=== PATIENT | female | born 1985 ===

== ENCOUNTER → 2020-12-15 11:25 | Outpatient (CLI) | payer OTHER, SELFPAY ==
[2020-12-15 13:31] LABS: COVID19 -Nasal RAPID Negative (Negative)
== END ==
PROVIDERS: Family Provider Family Medicine; PCP Nurse Practitioner Family; Visit Provider Family Medicine
DX: Z01.812 Encounter for preprocedural laboratory examination (principal); Z20.822 Contact with and (suspected) exposure to COVID-19
CPT/HCPCS: 87635

== ENCOUNTER 2020-12-17 08:51 | Day surgery (SDC) | payer OTHER, SELFPAY ==
[2020-12-14 11:52] VITALS: BMI 23.7
[2020-12-17] VITALS (8 sets, daily range): BP systolic 118–131; BP diastolic 75–85; PULSE 82–102; RESP 8–17; TEMP 35.8–36.9; O2SAT 91–99; BMI 23.7
--- NOTE | 2020-12-17 | DI.RAD.S_ITS ---
PROCEDURE: XR ANKLE RT MIN 3V INDICATIONS: RIGHT ANKLE ORIF TECHNIQUE: 4 views of the ankle were acquired. COMPARISON: [facility], CR, XR ANKLE 3 VIEWS WEIGHT BEARING RIGHT, 12/09/2020, 9:23. FINDINGS: Bones: No fractures or dislocations. Ankle mortise is normally aligned. No suspicious bony lesions. Intraoperative evaluation showing placement of distal inter osseous membrane fixation devices at the metadiaphyseal junction of the distal right tibia and fibula. Soft tissues: No tibiotalar joint effusion. Achilles tendon appears normal. IMPRESSION: Normal alignment established after placement of inter osseous membrane fixators at the distal tibial and fibular metadiaphyseal junction. Dictated by: Drew Guardado M.D. on 12/17/2020 at 14:55 Approved by: Drew Guardado M.D. on 12/17/2020 at 14:57
[2020-12-17] MEDS: LACTATED RINGERS 1,000 ML 42 ML IV ×2 (09:04→12:12)
--- NOTE | 2020-12-17 10:21 | PM.PREOP ---
Pre-operative Note COVID-19 COVID-19 status: Negative Interval Note History & Physical reviewed/Exam performed by Physician: Yes Changes to H&P: No
--- NOTE | 2020-12-17 11:22 | SUR.OPER ---
Supine on padded OR bed, head on pillow, arms secured on padded arm boards at <90 degrees abduction, legs uncrossed, bump under right hip, right leg is under control of surgeon, safety belt at thigh, tape over blanket over left lower leg.
[2020-12-17] MEDS: CEFAZOLIN 1 GM VIAL 2 GM IV (11:28)
[2020-12-17] MEDS: BUPIVACAINE 0.5% W/ EPI (PF) 30 ML VIAL INJ (11:29)
[2020-12-17] MEDS: SODIUM CHLORIDE IRRIG SOLUTION 3,000 ML, EPINEPHrine 1 MG IRR (11:30)
--- NOTE | 2020-12-17 12:44 | P.OP_ITS ---
Operative Date/Time/Diagnoses Date of procedure: 12/17/20 Time of procedure: 11:00 Pre-op diagnosis: High ankle sprain right lower extremity, syndesmotic disruption, flexor tenosynovitis Post-op diagnosis: same Procedure & Clinicians Procedure: 1. Open reduction internal fixation disruption of syndesmosis, right CPT code 17139 2. Arthroscopy ankle with limited debridement right cpt 11403-17 Same procedure as scheduled: Yes Indications: The patient is a 55-year-old female who sustained a right high ankle sprain in July while she was doing a yoga and then she had additional fall shortly after. She had a lot of pain swelling and felt unstable after the injuries she was completely unable to weight bear for about 4 weeks and use a knee scooter and then she was in a boot for about 6 weeks and treated by other orthopedist she was eventually moved to a brace but did not tolerate this she has been unable to weightbear on the right side and continues on crutches she has completed greater than 6 weeks of physical therapy the only thing helping her is KT tape around the distal tib-fib syndesmosis.She had an MRI in September that demonstrated a mildly widened syndesmosis about 3 mm and evidence of distal syndesmosis and interosseous sprain. No proximal fractures were identified. She is now 4 months out from injury still unable to weight bear with symptoms directly at the syndesmosis. She also has mild tenderness along her flexor tendons which did have some tenosynovitis but no tears on MRI. Due to her failure of conservative treatment she has been indicated for arthroscopic ankle debridement and open reduction internal fixation of her syndesmosis. The risks and benefits of the procedure have been discussed with the patient even opportunity to ask questions. The risks of surgery include but are not limited to infection, malunion, nonunion, persistence of pain, damage to nerves and blood vessels, posttraumatic arthritis, DVT, PE, cardiopulmonary complications and . The patient expressed a thorough understanding of the risks and benefits of surgery and has elected to proceed. Consent was signed in the office today. Surgeon: Verenice Garcia Click Yes if Unassisted: Yes Anesthesia Type: General and Local Operative Notes Findings: Arthroscopic findings anterior ankle and lateral medial ankle nonstick arthroscopy performed limited debridement of the anterior synovitis was completed. No osteochondral lesions were identified. Deltoid was intact. There was tearing of the distal syndesmosis and I was able to pass a 3 mm probe in between the tibia and fibula demonstrating syndesmotic instability. This was debrided Then the syndesmosis was repaired open utilizing a 2 hole plate and divergent suture button devices At the end of the procedure a improved him fib overlap was a demonstrated symmetric to the contralateral side. Closure Type: primary Specimen(s): none sent Prosthetic devices, grafts, tissues, transplants, or devices: Arthrex 2 hole plate and 2 divergent tightrope XP implants Applied: cast(s) (Splint) Estimated Blood Loss (mL): 2 Blood products transfused: none Tourniquet time (min): 60 Procedure in detail: Patient was seen in the preoperative area the site of surgery marked informed consent confirmed. She was brought back to the operating room by the anesthesia team positioned supine on operative table. General anesthetic was administered. An ipsilateral thigh bump was placed. The right lower extremities prepped and draped in the standard sterile fashion. A formal time-out procedure was performed confirming patient's side site of surgery administration of appropriate preoperative antibiotics which was Ancef. All were in agreement. Attention was turned to the arthroscopy Identified portal sites were marked out with care to avoid the superficial peroneal nerve. Tourniquet was elevated on thigh to 250 mmHg. The ankle was then insufflated with 10 cc of lidocaine Marcaine. A skin incision was made medially just through the skin in the hemostat was used to penetrate the joint and the trocar and camera introduced. This was then utilized performed diagnostic arthroscopy and then advanced laterally for stab ligament of the lateral portal in the same fashion with a sharp incision just in the skin and blunt dissection into the joint. Debridement was completed removing anterior synovitis. Diagnostic arthroscopy was completed no osteochondral lesions were identified. Medial gutter was evaluated. No loose bodies. Deltoid was intact. Laterally there was partial tearing in the syndesmosis and there was noted movement with probe pressure on the fibula. Next the syndesmosis stability was tested. A 3 mm probe was able to be passed through the syndesmosis a demonstrating widening. The syndesmotic ligaments were then debrided through the joint once this was completed the instruments were removed and the portals were closed. ORIF syndesmosis Next attention was turned to the syndesmotic fixation. C-arm was brought in and ideal locations for the implants were marked out on the skin then a 3 cm incision was made laterally over the fibula this was taken down to bone. A large periarticular clamp was then used in a [id number] fashion from the lateral malleolus to the medial malleolus with care to make sure the tines were evenly rotated in appropriate alignment on fluoroscopic examination. Once this was completed thumb pressure and the clamp were used to reduce the syndesmosis and hold it in place. This was evaluated on AP mortise and lateral fluoroscopic imaging. Once I was happy with this position the guidewires for the syndesmotic tight ropes were placed from the fibula to the tibia and through the 2 hole plate to reduce the stress riser. These were placed in a divergent fashion with 1 device more straight medial lateral and 1 more anteriorly angulated. The guidewires were then overdrilled and the tightrope XP is placed and sequentially tightened. Once this was completed the clamp was removed. Reduction was stable was taken through range of motion. External rotation stress was also done under fluoroscopy without evidence of widening. There was noted to be improved tib- fib coverage compared to preoperatively. Appropriate alignment was demonstrated on AP mortise and lateral imaging with symmetric and mortise and no residual til t. Tourniquet was released wound was irrigated hemostasis achieved and the wound was closed with 4-0 Monocryl and 3-0 nylon suture. All incisions were injected with additional local anesthetic. The wounds were dressed with Xeroform gauze Webril and a posterior and U splint. Patient was woken from anesthesia and taken to the recovery room in good condition. There no immediate complications from this procedure. Counts were correct. Complications: none Post-operative Condition: stable Disposition: PACU Plan for aftercare: Nonweightbearing right lower extremity for 2 weeks and will come back and be transitioned to a boot based on progress may start accelerated syndesmotic protocol. If she continues to have more pain medially along her flexor tendons would consider longer immobilization to rest these in addition to medial posted orthotic. Will use aspirin for DVT prophylaxis for 2 weeks or until weight-bearing. May use narcotic nonnarcotic and anti-inflammatory for pain control
[2020-12-17] MEDS: OXYCODONE/ACETAMINOPHEN 5/325 TABLET 1 TAB PO (12:46)
[2020-12-17] MEDS: KETOROLAC 30 MG/ML VIAL IV (12:57)
== END 2020-12-17 13:45 | disposition home or self-care (01) ==
PROVIDERS: Family Provider Family Medicine; PCP Nurse Practitioner Family; Referring Provider Orthopaedic Surgery Foot and Ankle Surgery; Visit Provider Orthopaedic Surgery Foot and Ankle Surgery
PROC: (CPT 27829; principal; 2020-12-17 10:45)
PROC: 0SSF04Z Reposition Right Ankle Joint with Internal Fixation Device, Open Approach (ICD-10-PCS; CPT 27829; 2020-12-17 10:45)
DX: S93.491A Sprain of other ligament of right ankle, initial encounter (principal); Y93.42 Activity, yoga; M79.7 Fibromyalgia; D64.9 Anemia, unspecified
CPT/HCPCS: 27829; 29897; 73610; 76000; J0171; J0690; J1100; J1170; J1885; J2405; J2704; J3010

== ENCOUNTER → 2021-01-30 13:52 | Outpatient (CLI) | payer OTHER, SELFPAY | PROVIDERS: Family Provider Family Medicine; PCP Nurse Practitioner Family; Visit Provider Physician Assistant | DX: R30.0 Dysuria (principal) | CPT/HCPCS: 87086 ==

== ENCOUNTER → 2021-03-01 09:00 | Outpatient (CLI) | payer OTHER, SELFPAY ==
[2021-03-01 09:56] LABS: Hematocrit 32.9 % (36-46); Hemoglobin 10.5 g/dL (12.0-16.0); Mean Corpuscular Hemoglobin 25.3 PG (26-34); Mean Corpuscular Volume 79.2 fL (80-100); Platelet Count 330 X10^3/uL (150-400); Red Blood Cell Count 4.15 X10^6/uL (4.0-5.2); Red Cell Distribution Width 15.7 % (11.6-14.8); White Blood Cell Count 5.4 X10^3/uL (4.5-11.0)
[2021-03-01 10:40] LABS: Alanine Aminotransferase 33 IU/L (<35); Albumin 4.4 g/dL (3.5-5.0); Albumin Globulin Ratio 1.3 (1.0-2.8); Alkaline Phosphatase 77 U/L (38-126); Aspartate Aminotransferase 34 IU/L (14-36); Bilirubin Total 0.4 mg/dL (0.2-1.3); Blood Urea Nitrogen 11 mg/dL (7-17); Calcium 9.3 mg/dL (8.4-10.2); Carbon Dioxide 25 mmol/L (22-32); Chloride 102 mmol/L (98-107); Cholesterol 213 mg/dL (140-199); Globulin 3.3 g/dL (1.7-4.1); Glucose 94 mg/dL (70-100); HDL Cholesterol 58 mg/dL (40-60); HEMOLYSIS < 15 (0-50); LDL Cholesterol Calculated 132 mg/dL (<100); Potassium 4.4 mmol/L (3.4-5.1); Sodium 135 mmol/L (137-145); Total Protein 7.7 g/dL (6.3-8.2); Triglycerides 116 mg/dL (35-150)
[2021-03-01 10:41] LABS: BUN Creatinine Ratio 21.2 (6-22); Estimated Glomerular Filt Rate > 60.0 mL/min (>60)
[2021-03-01 11:14] LABS: TSH w/ Reflex to FT4 1.31 uIU/mL (0.47-4.68)
== END ==
PROVIDERS: Family Provider Family Medicine; PCP Nurse Practitioner Family; Referring Provider Nurse Practitioner Family; Visit Provider Nurse Practitioner Family
DX: Z00.00 Encounter for general adult medical examination without abnormal findings (principal); F32.9 Major depressive disorder, single episode, unspecified; F41.9 Anxiety disorder, unspecified; M79.7 Fibromyalgia; Z13.6 Encounter for screening for cardiovascular disorders
CPT/HCPCS: 36415; 80053; 80061; 84443; 85027

== ENCOUNTER → 2021-03-15 12:57 | Outpatient (CLI) | payer OTHER, SELFPAY ==
[2021-03-15 13:56] LABS: Add Manual Diff / Slide Review NO; Basophils Absolute Auto 0 /uL (0-100); Basophils Percent Auto 0.5 % (0-2); Eosinophils Absolute Auto 0 /uL (0-450); Eosinophils Percent Auto 0.3 % (2-4); Hematocrit 32.1 % (36-46); Hemoglobin 10.2 g/dL (12.0-16.0); Lymphocytes Absolute Auto 2200 /uL (1100-4500); Lymphocytes Percent Auto 39.1 % (25-40); Mean Corpuscular HGB Conc 31.8 % (30-36); Mean Corpuscular Volume 78.6 fL (80-100); Monocytes Absolute Auto 300 /uL (0-900); Monocytes Percent Auto 5.1 % (3-14); Neutrophils Absolute Auto 3000 /uL (1500-7000); Platelet Count 401 X10^3/uL (150-400); Pregnancy Test Urine Negative (Negative); Red Blood Cell Count 4.09 X10^6/uL (4.0-5.2); Red Cell Distribution Width 15.1 % (11.6-14.8); White Blood Cell Count 5.5 X10^3/uL (4.5-11.0)
[2021-03-15 14:40] LABS: HEMOLYSIS < 15 (0-50); Iron 46 ug/dL (37-170)
[2021-03-15 14:41] LABS: Ferritin 5 ng/mL (6-137)
[2021-03-15 14:52] LABS: Percent Iron Saturation 10 % (15-50); Total Iron Binding Capacity 465 ug/dL (265-497); Transferrin 404 mg/dL (206-381)
[2021-03-15 14:55] LABS: Vitamin B12 Reflex MMA if <400 772 pg/mL (239-931)
[2021-03-15 15:12] LABS: TSH w/ Reflex to FT4 0.95 uIU/mL (0.47-4.68)
== END ==
PROVIDERS: Family Provider Family Medicine; PCP Nurse Practitioner Family; Referring Provider Nurse Practitioner Family; Visit Provider Nurse Practitioner Family
DX: D64.9 Anemia, unspecified (principal); K21.9 Gastro-esophageal reflux disease without esophagitis
CPT/HCPCS: 36415; 81025; 82607; 82728; 83540; 83550; 84443; 85025

== ENCOUNTER → 2021-03-31 17:39 | Outpatient (CLI) | payer OTHER, SELFPAY ==
--- NOTE | 2021-03-31 17:41 | DI.US.S_ITS ---
PROCEDURE: US ABDOMEN COMPLETE INDICATIONS: GERD, ABD BLOATING TECHNIQUE: Real-time scanning was performed of the abdominal and retroperitoneal organs, with image documentation. COMPARISON: [facility], US, ABDOMEN COMPLETE, 03/25/2013, 16:08. [facility], CT, CT ABDOMEN PELVIS WITH CONTRAST, 11/01/2018, 16:44. FINDINGS: Liver: Liver is normal in size and homogeneous in echotexture. Gallbladder: Removed. Biliary ducts: Intrahepatic bile ducts are non-dilated. Extrahepatic bile duct caliber measures 5 mm. Normal is 6-7 mm or less in diameter, or 10 mm or less post-cholecystectomy. Pancreas: Visualized portions of the pancreas are sonographically normal. Spleen: Spleen is normal in size and homogeneous in echotexture. Kidneys: Kidneys are normal in size and echotexture. Right kidney measures 11.4 cm long; left kidney measures 11.6 cm long. No hydronephrosis or nephrolithiasis. No solid masses are seen. However, the left kidney demonstrates a slightly lobulated contour. Aorta: Visualized aorta is normal in caliber at less than 3 cm. Iliacs: Proximal common iliac arteries are normal in caliber at less than 2.5 cm. IVC: Intrahepatic inferior vena cava is patent. Miscellaneous: No free abdominal fluid. IMPRESSION: No imaging explanation is found for this patient's presenting symptoms. Status post cholecystectomy, without biliary dilatation. Dictated by: Luís Kaplan M.D. on 03/31/2021 at 17:16 Approved by: Luís Kaplan M.D. on 03/31/2021 at 17:17
== END ==
PROVIDERS: Family Provider Family Medicine; PCP Nurse Practitioner Family; Referring Provider Nurse Practitioner Family; Visit Provider Nurse Practitioner Family
DX: R14.0 Abdominal distension (gaseous) (principal); K21.9 Gastro-esophageal reflux disease without esophagitis; D64.9 Anemia, unspecified; Z90.49 Acquired absence of other specified parts of digestive tract
CPT/HCPCS: 76700

== ENCOUNTER → 2021-04-06 18:38 | Outpatient (CLI) | payer OTHER, SELFPAY ==
[2021-04-06 19:31] LABS: COVID19 -Nasal RAPID Negative (Negative)
== END ==
PROVIDERS: Family Provider Family Medicine; PCP Nurse Practitioner Family; Visit Provider Nurse Practitioner Family
DX: R09.81 Nasal congestion (principal); Z20.822 Contact with and (suspected) exposure to COVID-19; R50.9 Fever, unspecified
CPT/HCPCS: 87635

== ENCOUNTER → 2021-06-11 12:34 | Outpatient (CLI) | payer OTHER, SELFPAY ==
[2021-06-11 13:09] LABS: Add Manual Diff / Slide Review NO; Basophils Absolute Auto 0 /uL (0-100); Basophils Percent Auto 0.6 % (0-2); Eosinophils Absolute Auto 0 /uL (0-450); Eosinophils Percent Auto 0.6 % (2-4); Hematocrit 35.5 % (36-46); Hemoglobin 11.4 g/dL (12.0-16.0); Lymphocytes Absolute Auto 2200 /uL (1100-4500); Lymphocytes Percent Auto 37.2 % (25-40); Mean Corpuscular Hemoglobin 26.2 PG (26-34); Mean Corpuscular Volume 81.9 fL (80-100); Monocytes Absolute Auto 300 /uL (0-900); Monocytes Percent Auto 5.5 % (3-14); Neutrophils Absolute Auto 3200 /uL (1500-7000); Neutrophils Percent Auto 56.1 % (50-75); Platelet Count 346 X10^3/uL (150-400); Red Blood Cell Count 4.33 X10^6/uL (4.0-5.2); Red Cell Distribution Width 19.7 % (11.6-14.8); White Blood Cell Count 5.8 X10^3/uL (4.5-11.0)
[2021-06-11 13:32] LABS: HEMOLYSIS < 15 (0-50); Iron 84 ug/dL (37-170)
[2021-06-11 13:43] LABS: Percent Iron Saturation 22 % (15-50); Total Iron Binding Capacity 389 ug/dL (265-497); Transferrin 311 mg/dL (206-381)
[2021-06-11 14:09] LABS: Ferritin 13 ng/mL (6-137)
== END ==
PROVIDERS: Family Provider Family Medicine; PCP Nurse Practitioner Family; Referring Provider Nurse Practitioner Family; Visit Provider Nurse Practitioner Family
DX: D64.9 Anemia, unspecified (principal)
CPT/HCPCS: 36415; 82728; 83540; 83550; 85025

== ENCOUNTER → 2021-07-26 15:47 | Outpatient (CLI) | payer OTHER, SELFPAY ==
[2021-07-26 16:38] LABS: COVID19 -Nasal RAPID Negative (Negative)
== END ==
PROVIDERS: Family Provider Family Medicine; PCP Nurse Practitioner Family; Referring Provider Registered Nurse Diabetes Educator; Visit Provider Registered Nurse Diabetes Educator
DX: Z20.822 Contact with and (suspected) exposure to COVID-19 (principal)
CPT/HCPCS: 87635

== ENCOUNTER 2021-08-31 15:14 | Emergency (ER) | payer OTHER, SELFPAY ==
--- NOTE | 2021-08-31 15:18 | ED.URI ---
HPI - URI/Sore Throat <BISI KanP - Last Filed: 08/31/21 16:31> General Chief Complaint: Upper Respiratory Symptoms Stated Complaint: Covid+, SOB, coming from walk in clinic Time Seen by Provider: 08/31/21 15:18 History of Present Illness HPI Narrative: 36-year-old female presents to the emergency department from the walk-in clinic complaining of shortness of breath, testing positive for COVID 6 days ago, pain with deep inspiration, muscle aches, and pleuritic pain in her chest and back related to her breathing. Patient states she took Tylenol, decongestants, and Sudafed which helped her symptoms mildly. She states nothing takes her pain away. Patient states she has had this pain for the last 2-3 days which has been getting worse. She denies any nausea or vomiting, states she has had intermittent fevers, denies any diarrhea, wheezing, difficulty breathing, or dizziness. Related Data Home Medications Medication Instructions Recorded Confirmed valacyclovir 500 mg tablet 500 mg PO BID PRN 10/28/20 07/26/21 fexofenadine 30 mg tablet 30 mg PO DAILY 12/17/20 07/26/21 multivitamin 2 tab PO DAILY 12/17/20 07/26/21 aluminum-magnesium hydroxide 500 ml PO .PO PRN 03/15/21 07/26/21 mg-500 mg/5 mL oral suspension pantoprazole 40 mg tablet,delayed 40 mg PO DAILY 03/15/21 07/26/21 release sucralfate 1 gram tablet 1 g PO QID tab 03/15/21 07/26/21 Previous Rx's Medication Instructions Recorded ondansetron HCl 4 mg tablet 4 mg PO Q8H PRN #7 tab 12/17/20 (Zofran) sertraline 100 mg tablet 100 mg PO DAILY #90 tab 03/15/21 ferrous gluconate 324 mg (38 mg 324 mg PO .qod #45 tab 06/08/21 iron) tablet methocarbamol 500 mg tablet 500 mg PO TID #20 tab 08/31/21 pseudoephedrine 60 mg-DM 30 1 tab PO BID PRN #20 tab 08/31/21 mg-guaifenesin 400 mg tablet Allergies Allergy/AdvReac Type Severity Reaction Status Date / Time nitrofurantoin Allergy Severe Swelling Verified 08/31/21 15:27 [From MACROBID] of Lip/Tongue/Throat Sulfa (Sulfonamide Allergy Severe SWEllING Verified 08/31/21 15:27 Antibiotics) [SULFA (SULFONAMIDE ANTIBIOTICS)] azithromycin [AZITHROMYCIN] Allergy Intermediate Verified 08/31/21 15:27 ciprofloxacin [From CIPRO] Allergy Mild Rash Verified 08/31/21 15:27 Penicillins [PENICILLINS] Allergy Unknown Verified 08/31/21 15:27 tapentadol [TAPENTADOL] Allergy Unknown Verified 08/31/21 15:27 codeine [CODEINE] AdvReac Intermediate Nightmare Verified 08/31/21 15:27 zolpidem [From AMBIEN] AdvReac Intermediate Hallucinati Verified 08/31/21 15:27 ng hydrocodone [From NORCO] AdvReac Mild dizziness/s Verified 08/31/21 15:27 yncope Review of Systems <JEREMIAH Kan - Last Filed: 08/31/21 16:31> Review of Systems Narrative: General: endorses fever, chills, malaise, sweats, fatigue Head/Neck: denies headache, neck pain, dizziness Eyes: denies visual changes, eye pain Cardio: denies chest pain, palpitations, edema Respiratory: denies dyspnea, cough, orthopnea GI: denies abdominal pain, nausea, vomiting, or diarrhea : denies dysuria, hematuria, urinary retention, frequency or incontinence MSK: denies joint pain, muscle weakness Skin: denies rash, itching, skin lesions or other Neuro: denies numbness, tingling Patient History <JEREMIAH Kan - Last Filed: 08/31/21 16:31> Medical History Abdominal bloating Anemia Ankle arthropathy (07/2020) Anxiety (2011) Depression (2011) Encounter for wellness examination in adult (10/28/20) Encounter to establish care Fibromyalgia Frequent UTI GERD (gastroesophageal reflux disease) (2007) Ovarian cyst PTSD (post-traumatic stress disorder) (~2006) SI (sacroiliac) joint dysfunction TMJ (dislocation of temporomandibular joint) Surgical History Anesthesia History of bladder surgery History of cholecystectomy (~2012) History of surgery Family History Father Diabetes mellitus Hypertension Hyperlipidemia Mother Hypertension Grandmother Stroke Grandfather History of heart disease Grandmother History of heart disease Social History household members: spouse Smoking Status: Never smoker second hand exposure: No alcohol intake: never substance use type: does not use Smoking Status: Never smoker Substance Use Type: does not use Exam <JEREMIAH Kan - Last Filed: 08/31/21 16:31> Narrative Exam Narrative: Independently reviewed vitals signs and nursing notes. General: Cooperative, comfortable, in no acute distress, well developed and well groomed, patient appears tired endorses fatigue Head/Neck: Normal visual inspection and supple, atraumatic, or lymphadenopathy. Normal facial exam Eyes: Pupils equal round and reactive, EOMI, conjunctiva normal, no scleral icterus or injections Nose: External nose normal, nares patent, no rhinorrhea, without purulent drainage Mouth/Throat: uvula midline, moist mucus membranes Cardio: Regular rate and rhythm, no peripheral edema, warm extremities Respiratory: Normal respiratory effort, able to speak in complete sentences without audible wheezing, stridor, or rales. No retractions or tachypnea GI: Abdomen soft, nontender to palpation x4 quadrants, nondistended, no masses or exquisite tenderness with exam, no flank tenderness MSK: Moves all extremities, neurovascularly intact Skin: Normal capillary refill, no rash Neuro: Normal speech and cognition, normal gait, A&O x3, tone normal, moves all extremities Psych: Mental status is grossly normal, speech is clear, congruent mood, normal affect Initial Vital Signs Initial Vital Signs: Vital Signs Temperature 98.6 F 08/31/21 15:22 Pulse Rate 66 08/31/21 15:22 Respiratory Rate 13 08/31/21 15:22 Blood Pressure 130/75 08/31/21 15:22 Pulse Oximetry 100 08/31/21 15:22 <Tal Michael DO - Last Filed: 09/01/21 08:04> Initial Vital Signs Initial Vital Signs: Vital Signs Temperature 98.6 F 08/31/21 15:22 Pulse Rate 66 08/31/21 15:22 Respiratory Rate 13 08/31/21 15:22 Blood Pressure 130/75 08/31/21 15:22 Pulse Oximetry 100 08/31/21 15:22 Course <JEREMIAH Kan - Last Filed: 08/31/21 16:31> Orders Ordered: Discontinued Medications Ketorolac Tromethamine (Ketorolac 30 Mg/Ml Vial) 15 mg IM NOW ONE Stop: 08/31/21 15:27 Last Admin: 08/31/21 15:53 Dose: 15 mg Documented by: SCARLETT Methocarbamol (Methocarbamol 500 Mg Tablet) 500 mg PO NOW ONE Stop: 08/31/21 15:27 Last Admin: 08/31/21 15:54 Dose: 500 mg Documented by: SCARLETT Vital Signs Vital signs: Vital Signs - 8 hr 08/31/21 15:22 08/31/21 16:07 Temperature 98.6 F Pulse Rate 66 63 Respiratory Rate 13 17 Blood Pressure 130/75 128/80 Pulse Oximetry 100 100 <Tal Michael DO - Last Filed: 09/01/21 08:04> Orders Ordered: Discontinued Medications Ketorolac Tromethamine (Ketorolac 30 Mg/Ml Vial) 15 mg IM NOW ONE Stop: 08/31/21 15:27 Last Admin: 08/31/21 15:53 Dose: 15 mg Documented by: SCARLETT Methocarbamol (Methocarbamol 500 Mg Tablet) 500 mg PO NOW ONE Stop: 08/31/21 15:27 Last Admin: 08/31/21 15:54 Dose: 500 mg Documented by: SCARLETT Vital Signs Vital signs: Vital Signs - 8 hr 08/31/21 15:22 08/31/21 16:07 Temperature 98.6 F Pulse Rate 66 63 Respiratory Rate 13 17 Blood Pressure 130/75 128/80 Pulse Oximetry 100 100 MDM - URI/Sore Throat <JEREMIAH Kan - Last Filed: 08/31/21 16:31> Lab Data Labs: Point of Care Testing Test Results Negative Urine Dip Bedside Urine Glucose Negative Bedside Urine Bilirubin - Negative Bedside Urine Ketone - Negative Urine Specific [place] 1.010 Bedside Urine Occult Blood - Negative Bedside Urine pH 7.5 Bedside Urine Protein - Negative Bedside Urine Urobilinogen - Negative Bedside Urine Nitrite - Negative Bedside Urine Leukocytes - Negative Esterase Imaging Data Chest x-ray: Radiologist's Impression: PROCEDURE:? XR CHEST 1V ? INDICATIONS:? chest/back pain-presumed pleuritic, covid +, SOB, pneumonia? ? TECHNIQUE:? One view of the chest was acquired.? ? COMPARISON:? None. ? FINDINGS:? ? Surgical changes and devices:? A metallic clip is seen projecting over the right breast.? ?? Lungs and pleura:? Lungs are clear.? No pleural effusions or pneumothorax.? ? Mediastinum:? Mediastinal contours appear normal.? Heart size is normal.? ? Bones and chest wall:? No suspicious bony lesions.? Overlying soft tissues appear unremarkable.? ? IMPRESSION:? No acute cardiopulmonary abnormality. ?? Dictated by: Zheng Schmidt M.D. on 08/31/2021 at 15:47 ? ? Approved by: Zheng Schmidt M.D. on 08/31/2021 at 15:47 ? MDM Narrative Medical decision making narrative: Female presents to the emergency department and was sent over from the walk-in clinic with complaint of pleuritic chest and back pain, pain with deep inspiration, myalgias, and current COVID infection. Patient tested positive for COVID 6 days ago, has ongoing fatigue, congestion, exertional shortness of breath, without nausea, vomiting, diarrhea, dizziness, syncope, visual changes. Patient was given 15 mg of IM Toradol after urine tested negative for , patient also was given 500 methocarbamol which she states was helpful for her myalgias. Patient instructed to continue quarantine since she is still having fevers, patient had a another viral infection approximately 1 month ago, she states that her whole family got and presumed it was COVID at that time and now her whole family has her symptoms again and her son is positive for COVID. Encourage patient to hydrate, use [id number] decongestants, Tylenol and Motrin as needed for her stay pain or fever. Encouraged to return to the emergency room if she has any worsening of her symptoms, difficulty breathing, wheezing, or chest pain. Patient is appropriate and amenable to discharge home. Vital signs are stable on repeat examination is unremarkable. Patient has been informed of results. Patient has been given strict return to ER precautions for any new or worsening symptoms. Patient understands to follow up closely with outpatient providers as instructed. Patient understands plan and agrees to discharge home. All questions and concerns answered at this time. <Tal Alec, DO - Last Filed: 09/01/21 08:04> Lab Data Labs: Point of Care Testing Test Results Negative Urine Dip Bedside Urine Glucose Negative Bedside Urine Bilirubin - Negative Bedside Urine Ketone - Negative Urine Specific [place] 1.010 Bedside Urine Occult Blood - Negative Bedside Urine pH 7.5 Bedside Urine Protein - Negative Bedside Urine Urobilinogen - Negative Bedside Urine Nitrite - Negative Bedside Urine Leukocytes - Negative Esterase Discharge Plan Departure Patient Disposition: Home Clinical Impression: Myalgia, COVID-19 Instructions: DI for COVID-19 (Suspected or Confirmed ) Activity Restrictions/Additional Instructions: *You have been diagnosed with [ COVID-19] and myalgias or muscle aches. I am sorry your symptoms have been going on this long and for the 2nd time. Please stay hydrated, take [id number] decongestants/Mucinex/Flonase/Benadryl as needed for your congestion and phlegm. Please use Tylenol or ibuprofen for your pain or fever. Please do not take any ibuprofen today. Please rest when you feel like you need to. You are hopefully over the hump already and are likely feeling miserable because your drained. Increase your rest, take a multivitamin, treat your symptoms and try to get upright a few times a day at minimum. Thank you for trusting us with your care, please return to the emergency department if you have any shortness of breath that is worsening, wheezing, difficulty breathing, or any other concerning symptoms. Please quarantine until 5 days after your last fever and wear a mask thereafter. I wish you the best of luck. *What to do: * per recommendations from the CDC and the [facility] Department of Health * stay home except to get medical care. Restrict activities outside your home, except for getting medical care. Do not go to work, school, or public areas. Avoid using public transportation, ride sharing, or taxis. * separate yourself from other people in your home. * call ahead before visiting your doctor * Wear a facemask * Cover your coughs and sneezes * Clean your hands often * Avoid sharing household items * Clean all high-touch services every day * Monitor your symptoms and seek prompt medical attention if your illness is worsening, particularly with difficulty in breathing. You may discontinue your isolation when: 1. You have been fever-free for at least 24 hours without the use of fever reducing medication, AND 2. Your symptoms are getting better 3. At least 10 days have passed since symptoms first appeared Individuals with laboratory confirmed COVID-19 who have not had any symptoms may discontinue home isolation when at least 10 days have passed since the date of their first COVID-19 diagnostic test and have had no subsequent illness Prescriptions: New methocarbamol 500 mg tablet 500 mg PO TID Qty: 20 0RF [id number] 60-30-400 mg tablet 1 tab PO BID PRN (Reason: sinus symptoms) Qty: 20 0RF No Action valacyclovir 500 mg tablet 500 mg PO BID PRN (Reason: flare) 0RF Rx Instructions: 500 mg BID x3 days during flare pantoprazole 40 mg tablet,delayed release (DR/EC) 40 mg PO DAILY 0RF sucralfate 1 gram tablet 1 g PO QID 0RF aluminum-magnesium hydroxide 500-500 mg/5 mL suspension PO .PO PRN0RF sertraline 100 mg tablet 100 mg PO DAILY Qty: 90 3RF ferrous gluconate 324 mg (38 mg iron) tablet 324 mg PO .qod Qty: 45 0RF Rx Instructions: take one tablet with vitamin c every other day, use stool softener as needed. fexofenadine 30 mg Tablet 30 mg PO DAILY 0RF multivitamin Tablet,Chewable 2 tab PO DAILY 0RF ondansetron HCl [Zofran] 4 mg tablet 4 mg PO Q8H PRN (Reason: nausea and vomiting) Qty: 7 1RF Referrals: Mary Caballero ARNP [Primary Care Provider] - <Tal Michael DO - Last Filed: 09/01/21 08:04> Cosign ED Attending [place]ra[place] Attestation: I was immediately available in the department for consultation. This documentation has been reviewed and I agree with assessment and plan. Supervised by Tal Michael DO
[2021-08-31 15:22] VITALS: BP 130/75; PULSE 66; RESP 13; TEMP 37; O2SAT 100; BMI 25.6
--- NOTE | 2021-08-31 15:26 | DI.RAD.S_ITS ---
PROCEDURE: XR CHEST 1V INDICATIONS: chest/back pain-presumed pleuritic, covid +, SOB, pneumonia? TECHNIQUE: One view of the chest was acquired. COMPARISON: None. FINDINGS: Surgical changes and devices: A metallic clip is seen projecting over the right breast. Lungs and pleura: Lungs are clear. No pleural effusions or pneumothorax. Mediastinum: Mediastinal contours appear normal. Heart size is normal. Bones and chest wall: No suspicious bony lesions. Overlying soft tissues appear unremarkable. IMPRESSION: No acute cardiopulmonary abnormality. Dictated by: Zheng Schmidt M.D. on 08/31/2021 at 15:47 Approved by: Zheng Schmidt M.D. on 08/31/2021 at 15:47
[2021-08-31] MEDS: KETOROLAC 30 MG/ML VIAL 15 MG IM (15:53)
[2021-08-31] MEDS: methocarbamoL 500 MG TABLET PO (15:54)
[2021-08-31 16:07] VITALS: BP 128/80; PULSE 63; RESP 17; O2SAT 100
== END 2021-08-31 16:26 | disposition home or self-care (01) ==
PROVIDERS: Emergency Provider Nurse Practitioner Critical Care Medicine; Family Provider Family Medicine; PCP Nurse Practitioner Family
DX: U07.1 COVID-19 (principal)
CPT/HCPCS: 71045; 81003; 81025; 96372; 99283; J1885

== ENCOUNTER → 2021-10-26 15:12 | Outpatient (CLI) | payer OTHER, SELFPAY ==
[2021-10-26 16:00] LABS: Hematocrit 34.1 % (36-46); Hemoglobin 11.9 g/dL (12.0-16.0); Mean Corpuscular HGB Conc 34.8 % (30-36); Mean Corpuscular Hemoglobin 30.8 PG (26-34); Mean Corpuscular Volume 88.5 fL (80-100); Platelet Count 311 X10^3/uL (150-400); Red Blood Cell Count 3.86 X10^6/uL (4.0-5.2); Red Cell Distribution Width 14.1 % (11.6-14.8); White Blood Cell Count 7.7 X10^3/uL (4.5-11.0)
[2021-10-26 16:54] LABS: Ferritin 6 ng/mL (6-137)
[2021-10-26 17:19] LABS: HEMOLYSIS < 15 (0-50); Iron 69 ug/dL (37-170)
[2021-10-26 17:30] LABS: Percent Iron Saturation 17 % (15-50); Total Iron Binding Capacity 410 ug/dL (265-497); Transferrin 320 mg/dL (206-381)
== END ==
PROVIDERS: Family Provider Family Medicine; PCP Nurse Practitioner Family; Referring Provider Nurse Practitioner Family; Visit Provider Nurse Practitioner Family
DX: Z00.00 Encounter for general adult medical examination without abnormal findings (principal); D50.0 Iron deficiency anemia secondary to blood loss (chronic)
CPT/HCPCS: 36415; 82728; 83540; 83550; 85027

== ENCOUNTER 2022-01-27 10:52 | Emergency (ER) | payer OTHER, SELFPAY ==
[2022-01-27 10:57] VITALS: BP 118/73; PULSE 80; RESP 16; TEMP 36.5; O2SAT 100; BMI 25.3
[2022-01-27 11:52] LABS: Alanine Aminotransferase 31 IU/L (<35); Albumin 4.7 g/dL (3.5-5.0); Albumin Globulin Ratio 1.6 (1.0-2.8); Alkaline Phosphatase 76 U/L (38-126); Aspartate Aminotransferase 35 IU/L (14-36); BUN Creatinine Ratio 16.1 (6-22); Bilirubin Total 0.5 mg/dL (0.2-1.3); Blood Urea Nitrogen 9 mg/dL (7-17); Calcium 8.9 mg/dL (8.4-10.2); Carbon Dioxide 27 mmol/L (22-32); Chloride 100 mmol/L (98-107); Estimated Glomerular Filt Rate > 60 mL/min (>60); Glucose 105 mg/dL (70-100); HEMOLYSIS < 15 (0-50); Lipase 95 U/L (23-300); Potassium 4.2 mmol/L (3.4-5.1); Sodium 136 mmol/L (137-145); Total Protein 7.7 g/dL (6.3-8.2)
[2022-01-27 11:53] LABS: Add Manual Diff / Slide Review NO; Basophils Absolute Auto 0 /uL (0-100); Basophils Percent Auto 0.4 % (0-2); Eosinophils Absolute Auto 100 /uL (0-450); Hemoglobin 12.3 g/dL (12.0-16.0); Lymphocytes Absolute Auto 2200 /uL (1100-4500); Lymphocytes Percent Auto 33.2 % (25-40); Mean Corpuscular HGB Conc 33.1 % (30-36); Mean Corpuscular Hemoglobin 29.9 PG (26-34); Mean Corpuscular Volume 90.1 fL (80-100); Monocytes Absolute Auto 400 /uL (0-900); Monocytes Percent Auto 5.8 % (3-14); Neutrophils Absolute Auto 3900 /uL (1500-7000); Neutrophils Percent Auto 58.6 % (50-75); Platelet Count 363 X10^3/uL (150-400); Red Cell Distribution Width 13.6 % (11.6-14.8); White Blood Cell Count 6.6 X10^3/uL (4.5-11.0)
[2022-01-27 12:08] LABS: Bacteria Urine None Seen; Culture Indicated Urine Cult Not Indicated; RBC Urine None Seen (0-5/HPF); WBC Urine None Seen (0-5/HPF)
--- NOTE | 2022-01-27 13:38 | DI.US.S_ITS ---
PROCEDURE: US PELVIC COMPLETE INDICATIONS: RLQ / right adnexal pain TECHNIQUE: Real-time scanning was performed of the pelvic organs, with image documentation. Additional endovaginal scanning was necessary due to incomplete visualization of the adnexal and endometrial structures by transabdominal scanning. COMPARISON: [facility], US, PELVIC COMPLETE, 03/22/2017, 7:18. FINDINGS: Uterus: Uterus is anteverted and normal in size at 9.8 x 6.0 x 4.0 cm. The myometrium is homogeneous. The endometrium measures 7.5 mm combined thickness. Ovaries: The right ovary measures 2.6 x 2.4 x 2.1 cm. The left ovary is not visualized due to overlying bowel gas. There is a 1.8 x 1.7 x 2.0 cm simple cyst within the right ovary. There are fewer than 12 follicles within the right ovary. Other: No pathologic free abdominal or pelvic fluid. IMPRESSION: 1. Normal pelvic ultrasound. Simple right ovarian cyst which is within physiologic limits in a premenopausal female. No findings to explain patient's pain. Arterial and venous flow is visualized within the right ovary. We strive to produce accurate, complete, and clear reports of imaging services. To assist us in improving patient care, this report was composed using standard report templates and voice recognition software. Therefore, it may contain abnormal punctuation, insertions and/or omissions. Occasional wrong-word or sound-alike substitutions may occur. Though we review the report and make efforts to correct it, we do recommend that the report be read carefully in proper context to recognize any text inaccuracies. Dictated by: Merle Rm M.D. on 01/27/2022 at 15:22 Approved by: Merle Rm M.D. on 01/27/2022 at 15:24
--- NOTE | 2022-01-27 13:39 | ED_ITS ---
HPI - Abdominal Pain <Glenroy JEREMIAH Elizabeth - Last Filed: 01/27/22 16:38> General Chief Complaint: Abdominal Pain Stated Complaint: sudden lower right abomdinal pain Time Seen by Provider: 01/27/22 12:02 Source: patient Mode of arrival: Wheelchair History of Present Illness HPI narrative: 36-year-old nonsmoker female presents to the emergency department with right lower quadrant abdominal pain and mild nausea x3 hours. Patient reports a history of ovarian cysts. Patient reports that she was experiencing a 8/10 pain but has now reduced to a ?numbness? with intermittent twinges of pain. History of cholecystectomy. Childbirth via x4. Patient is not on control. Last menstrual period was 1 week ago. Patient denies any trauma to that area. Related Data Home Medications Medication Instructions Recorded Confirmed valacyclovir 500 mg tablet 500 mg PO BID PRN flare 10/28/20 07/26/21 fexofenadine 30 mg tablet 30 mg PO DAILY 12/17/20 07/26/21 multivitamin 2 tab PO DAILY 12/17/20 07/26/21 aluminum-magnesium hydroxide 500 ml PO .PO PRN 03/15/21 07/26/21 mg-500 mg/5 mL oral suspension pantoprazole 40 mg tablet,delayed 40 mg PO DAILY 03/15/21 07/26/21 release sucralfate 1 gram tablet 1 g PO QID 03/15/21 07/26/21 Previous Rx's Medication Instructions Recorded ondansetron HCl 4 mg tablet 4 mg PO Q8H PRN nausea and 12/17/20 (Zofran) vomiting #7 tabs ferrous gluconate 324 mg (38 mg 324 mg PO .qod #45 tabs 06/08/21 iron) tablet methocarbamol 500 mg tablet 500 mg PO TID #20 tabs 08/31/21 pseudoephedrine 60 mg-DM 30 1 tab PO BID PRN sinus symptoms 08/31/21 mg-guaifenesin 400 mg tablet #20 tabs sertraline 150 mg capsule 150 mg PO DAILY #90 caps 10/26/21 Allergies Allergy/AdvReac Type Severity Reaction Status Date / Time nitrofurantoin Allergy Severe Swelling Verified 01/27/22 10:57 [From MACROBID] of Lip/Tongue/Throat Sulfa (Sulfonamide Allergy Severe SWEllING Verified 01/27/22 10:57 Antibiotics) [SULFA (SULFONAMIDE ANTIBIOTICS)] azithromycin [AZITHROMYCIN] Allergy Intermediate Verified 01/27/22 10:57 ciprofloxacin [From CIPRO] Allergy Mild Rash Verified 01/27/22 10:57 Penicillins [PENICILLINS] Allergy Unknown Verified 01/27/22 10:57 tapentadol [TAPENTADOL] Allergy Unknown Verified 01/27/22 10:57 codeine [CODEINE] AdvReac Intermediate Nightmare Verified 01/27/22 10:57 zolpidem [From AMBIEN] AdvReac Intermediate Hallucinati Verified 01/27/22 10:57 ng hydrocodone [From NORCO] AdvReac Mild dizziness/s Verified 01/27/22 10:57 yncope Review of Systems <JEREMIAH Miranda - Last Filed: 01/27/22 16:38> Review of Systems Narrative: Narrative: GENERAL: Denies chills, fatigue, fever, sweats. HEENT: Denies sinus pain, ear pain, sore throat, difficulty swallowing, dizziness. RESPIRATORY: Denies dyspnea, cough, wheezing, sputum. CARDIOVASCULAR: Denies chest pain, palpitations, edema. GASTROINTESTINAL: Denies vomiting, diarrhea, constipation. : Denies dysuria, frequency, incontinence, hematuria, urinary retention, flank pain. [employer]: Denies vaginal itching, bleeding or discharge. MUSCULOSKELETAL: denies weakness, joint pain, or bony pain. SKIN: Denies rash, skin lesions, or pruritis. NEUROLOGIC: Denies weakness, dizziness, headache, numbness. PSYCHIATRIC: No concerning psychosocial issues. Patient History <JEREMIAH Miranda - Last Filed: 01/27/22 16:38> Medical History Abdominal bloating Anemia Ankle arthropathy (07/2020) Anxiety (2011) Depression (2011) Encounter for wellness examination in adult (10/28/20) Encounter to establish care Fibromyalgia Frequent UTI GERD (gastroesophageal reflux disease) (2007) Ovarian cyst PTSD (post-traumatic stress disorder) (~2006) SI (sacroiliac) joint dysfunction TMJ (dislocation of temporomandibular joint) Surgical History Anesthesia History of bladder surgery History of cholecystectomy (~2012) History of surgery Family History Father Diabetes mellitus Hypertension Hyperlipidemia Mother Hypertension Grandmother Stroke Grandfather History of heart disease Grandmother History of heart disease Social History household members: spouse Smoking Status: Never smoker second hand exposure: No alcohol intake: never substance use type: does not use Smoking Status: Never smoker alcohol intake frequency: holidays/special occasions only Substance Use Type: does not use Exam <JEREMIAH Miranda - Last Filed: 01/27/22 16:38> Narrative Exam Narrative: Exam Narrative: GENERAL: This is a well-nourished, well-developed patient, in mild distress HEAD: Atraumatic. Normocephalic. EYES: Pupils equal round and reactive. Extraocular motions intact. No injection or drainage. ENT: Nose without bleeding, purulent drainage. Airway patent. NECK: Trachea midline. No JVD or lymphadenopathy. Supple and nontender. CARDIOVASCULAR: Regular rate and rhythm, peripheral pulses intact, cap refill <2 sec. RESPIRATORY: Breath sounds equal and clear bilaterally. No wheezes, rales, or rhonchi. No cough. No increased respiratory effort. No accessory muscle use. GASTROINTESTINAL: Abdomen soft, tender on lower quadrants, worse on right lower quadrant, nondistended without guarding or rebound. No suprapubic pain. No hepato-splenomegaly, or palpable masses. EXTREMITIES: Normal range of motion, no clubbing or edema. Neurovascularly intact. NEURO: A&O x 3. SKIN: Warm, dry, no rashes or lesions noted. Initial Vital Signs Initial Vital Signs: Vital Signs Temperature 97.7 F 01/27/22 10:57 Pulse Rate 80 01/27/22 10:57 Respiratory Rate 16 01/27/22 10:57 Blood Pressure 118/73 01/27/22 10:57 Pulse Oximetry 100 01/27/22 10:57 Oxygen Delivery Method 01/27/22 10:57 Reviewed <Melissa Bo DO - Last Filed: 01/30/22 07:06> Initial Vital Signs Initial Vital Signs: Vital Signs Temperature 97.7 F 01/27/22 10:57 Pulse Rate 80 01/27/22 10:57 Respiratory Rate 16 01/27/22 10:57 Blood Pressure 118/73 01/27/22 10:57 Pulse Oximetry 100 01/27/22 10:57 Oxygen Delivery Method 01/27/22 10:57 Course <JEREMIAH Miranda - Last Filed: 01/27/22 16:38> Orders Ordered: Discontinued Medications Ketorolac Tromethamine (Ketorolac 30 Mg/Ml Vial) 30 mg IV NOW ONE Stop: 01/27/22 15:38 Last Admin: 01/27/22 15:45 Dose: 30 mg Documented By: AUGUSTINA Vital Signs Vital signs: Vital Signs - 8 hr 01/27/22 10:57 Temperature 97.7 F Pulse Rate 80 Respiratory Rate 16 Blood Pressure 118/73 Pulse Oximetry 100 Oxygen Delivery Method Room Air <Melissa Bo DO - Last Filed: 01/30/22 07:06> Orders Ordered: Discontinued Medications Ketorolac Tromethamine (Ketorolac 30 Mg/Ml Vial) 30 mg IV NOW ONE Stop: 01/27/22 15:38 Last Admin: 01/27/22 15:45 Dose: 30 mg Documented By: AUGUSTINA Vital Signs Vital signs: Vital Signs - 8 hr 01/27/22 10:57 Temperature 97.7 F Pulse Rate 80 Respiratory Rate 16 Blood Pressure 118/73 Pulse Oximetry 100 Oxygen Delivery Method Room Air MDM - Abdominal Pain <JEREMIAH Miranda - Last Filed: 01/27/22 16:38> Differential Diagnosis Differential diagnosis: Likely other (ovarian cyst); Unlikely acute appendicitis or diverticulitis Lab Data Result diagrams: 01/27/22 11:10 01/27/22 11:10 Labs: Lab Results 01/27/22 01/27/22 01/27/22 Range/Units 11:00 11:10 11:10 WBC 6.6 (4.5-11.0) X10^3/uL RBC 4.10 (4.0-5.2) X10^6/uL Hgb 12.3 (12.0-16.0) g/dL Hct 37.0 (36-46) % MCV 90.1 (80-100) fL MCH 29.9 (26-34) PG MCHC 33.1 (30-36) % RDW 13.6 (11.6-14.8) % Plt Count 363 (150-400) X10^3/uL Neut % (Auto) 58.6 (50-75) % Lymph % (Auto) 33.2 (25-40) % [place] % (Auto) 5.8 (3-14) % Eos % (Auto) 2.0 (2-4) % Baso % (Auto) 0.4 (0-2) % Neut # (Auto) 3900 (2131-2041) /uL Lymph # (Auto) 2200 (8003-7597) /uL [place] # (Auto) 400 (0-900) /uL Eos # (Auto) 100 (0-450) /uL Baso # (Auto) 0 (0-100) /uL Sodium 136 L (137-145) mmol/L Potassium 4.2 (3.4-5.1) mmol/L Chloride 100 (98-107) mmol/L Carbon Dioxide 27 (22-32) mmol/L BUN 9 (7-17) mg/dL Creatinine 0.56 (0.52-1.04) mg/dL Estimated GFR > 60 (>60) mL/min BUN/Creatinine Ratio 16.1 (6-22) Glucose 105 H (70-100) mg/dL Calcium 8.9 (8.4-10.2) mg/dL Total Bilirubin 0.5 (0.2-1.3) mg/dL AST 35 (14-36) IU/L ALT 31 (<35) IU/L Alkaline Phosphatase 76 (38-126) U/L Total Protein 7.7 (6.3-8.2) g/dL Albumin 4.7 (3.5-5.0) g/dL Globulin 3.0 (1.7-4.1) g/dL Albumin/Globulin Ratio 1.6 (1.0-2.8) Lipase 95 (23-300) U/L Urine RBC None seen (0-5/HPF) Urine WBC None seen (0-5/HPF) Urine Bacteria None seen (None) Ur Culture Indicated? Cult not indicated Point of care testing: Point of Care Testing Test Results Negative Urine Dip Bedside Urine Glucose Negative Bedside Urine Bilirubin - Negative Bedside Urine Ketone - Negative Urine Specific [place] 1.010 Bedside Urine Occult Blood +/- Bedside Urine pH 6.5 Bedside Urine Protein - Negative Bedside Urine Urobilinogen - Negative Bedside Urine Nitrite - Negative Bedside Urine Leukocytes - Negative Esterase Imaging Data US - abdomen: Radiologist's Impression: [address] [id number] Ultrasound Report Signed Patient: Aziza Maldonado MR#: [id number] : 1985 Acct:[id number] Age/Sex: 36 / F Date of Service: 01/27/22 Loc: ED Accession Number: [id number] ?? Procedure: US pelvic complete Ordering Provider: Glenroy Elizabeth PROCEDURE:? US PELVIC COMPLETE ? INDICATIONS:? RLQ / right adnexal pain ? TECHNIQUE:? Real-time scanning was performed of the pelvic organs, with image documentation.? Additional endovaginal scanning was necessary due to incomplete visualization of the adnexal and endometrial structures by transabdominal scanning.? ? COMPARISON:? [facility], , PELVIC COMPLETE, 03/22/2017, 7:18. ? FINDINGS:? ?? Uterus:? Uterus is anteverted and normal in size at 9.8 x 6.0 x 4.0 cm. The myometrium is homogeneous. ? The endometrium measures 7.5 mm combined thickness. ? ? Ovaries:? The right ovary measures 2.6 x 2.4 x 2.1 cm.? The left ovary is not visualized due to overlying bowel gas.? There is a 1.8 x 1.7 x 2.0 cm simple cyst within the right ovary.? There are fewer than 12 follicles within the right ovary. ? Other:? No pathologic free abdominal or pelvic fluid. ? ? IMPRESSION:? ? 1. Normal pelvic ultrasound.? Simple right ovarian cyst which is within physiologic limits in a premenopausal female.? No findings to explain patient's pain.? Arterial and venous flow is visualized within the right ovary. ? ? We strive to produce accurate, complete, and clear reports of imaging services. To assist us in improving patient care, this report was composed using standard report templates and voice recognition software. Therefore, it may contain abnormal punctuation, insertions and/or omissions. Occasional wrong-word or sound-alike substitutions may occur. Though we review the report and make efforts to correct it, we do recommend that the report be read carefully in proper context to recognize any text inaccura cies. ? ? Dictated by: Merle Rm M.D. on 01/27/2022 at 15:22 ? ? Approved by: Merle Rm M.D. on 01/27/2022 at 15:24 ? CT scan - abdomen/pelvis: Radiologist's Impression: [address] [address] [address] Scan Report Signed Patient: Aziza Maldonado MR#: [id number] : 1985 Acct:[id number] Age/Sex: 36 / F Date of Service: 01/27/22 Loc: ED Accession Number: [id number] ?? Procedure: CT abdomen pelvis wo con Ordering Provider: Glenroy Elizabeth PROCEDURE:? CT ABDOMEN PELVIS WO CON ? INDICATIONS:? RLQ abd pain ? TECHNIQUE:? Noncontrast 5 mm thick sections acquired from the diaphragms to the symphysis.? 5 mm coronal and sagittal reformats were then performed.? For radiation dose reduction, the following was used:? automated exposure control, adjustment of mA and/or kV according to patient size.? ? COMPARISON:? None. ? FINDINGS:? Image quality:? Excellent.? ? ABDOMEN:? Lung bases:? Lung bases are clear.? Heart size is normal.? ? Solid organs:? Liver is normal in size.? Gallbladder is surgically absent .? Pancreas is normal in contours.? Spleen is normal in size.? No adrenal nodules.? Kidneys are normal in size, without hydronephrosis.? There are bilateral single nonobstructing intrarenal calculi.? Punctate on the right and measuring 3 mm on the left. ? Peritoneum and bowel:? Unenhanced bowel loops demonstrate normal wall thickness and caliber.? Slightly increased quantity of solid stool present throughout the colon.? Normal appendix is seen.? No free fluid or air.? ? Nodes and vessels:? No retroperitoneal or mesenteric adenopathy by size criteria.? Aorta and inferior vena cava are normal in caliber.? ? Miscellaneous:? No ventral hernias.? ? ? PELVIS:? Genitourinary:? The anteverted uterus is normal size.? There is a dominant follicle seen on each ovary.? No suspicious adnexal mass. ? Miscellaneous:? No inguinal hernias or adenopathy.? ? Bones:? No suspicious bony lesions.? No vertebral body compression fractures.? ? IMPRESSION:? ? 1. No acute process. ? 2. Bilateral nonobstructing intrarenal calculi. ? 3. Post cholecystectomy.? ? ? Dictated by: Karmen Aguila M.D. on 01/27/2022 at 16:12 ? ? Approved by: Karmen Aguila M.D. on 01/27/2022 at 16:17 ? ECG Data Attestation: I personally reviewed and interpreted this ECG as follows: Interpretation: Normal sinus rhythm with normal rate and no ST elevation MDM Narrative Medical decision making narrative: 36-year-old female presented to the emergency department with complaints of acute right lower quadrant pain and came immediately to the emergency department. History of ovarian cysts. EKG with NSR. Ultrasound reveals right ov dolores cyst. Abdominal CT ordered with the results of ovarian cyst. Labs reveal no , UTI, anemia or infectious process. Single dose of ketorolac provided with reports of improving pain. Will send patient with instructions to follow up with primary care provider next week <Melissa Bo DO - Last Filed: 01/30/22 07:06> Lab Data Labs: Lab Results 01/27/22 01/27/22 01/27/22 Range/Units 11:00 11:10 11:10 WBC 6.6 (4.5-11.0) X10^3/uL RBC 4.10 (4.0-5.2) X10^6/uL Hgb 12.3 (12.0-16.0) g/dL Hct 37.0 (36-46) % MCV 90.1 (80-100) fL MCH 29.9 (26-34) PG MCHC 33.1 (30-36) % RDW 13.6 (11.6-14.8) % Plt Count 363 (150-400) X10^3/uL Neut % (Auto) 58.6 (50-75) % Lymph % (Auto) 33.2 (25-40) % [place] % (Auto) 5.8 (3-14) % Eos % (Auto) 2.0 (2-4) % Baso % (Auto) 0.4 (0-2) % Neut # (Auto) 3900 (4286-1578) /uL Lymph # (Auto) 2200 (1537-8011) /uL [place] # (Auto) 400 (0-900) /uL Eos # (Auto) 100 (0-450) /uL Baso # (Auto) 0 (0-100) /uL Sodium 136 L (137-145) mmol/L Potassium 4.2 (3.4-5.1) mmol/L Chloride 100 (98-107) mmol/L Carbon Dioxide 27 (22-32) mmol/L BUN 9 (7-17) mg/dL Creatinine 0.56 (0.52-1.04) mg/dL Estimated GFR > 60 (>60) mL/min BUN/Creatinine Ratio 16.1 (6-22) Glucose 105 H (70-100) mg/dL Calcium 8.9 (8.4-10.2) mg/dL Total Bilirubin 0.5 (0.2-1.3) mg/dL AST 35 (14-36) IU/L ALT 31 (<35) IU/L Alkaline Phosphatase 76 (38-126) U/L Total Protein 7.7 (6.3-8.2) g/dL Albumin 4.7 (3.5-5.0) g/dL Globulin 3.0 (1.7-4.1) g/dL Albumin/Globulin Ratio 1.6 (1.0-2.8) Lipase 95 (23-300) U/L Urine RBC None seen (0-5/HPF) Urine WBC None seen (0-5/HPF) Urine Bacteria None seen (None) Ur Culture Indicated? Cult not indicated Point of care testing: Point of Care Testing Test Results Negative Urine Dip Bedside Urine Glucose Negative Bedside Urine Bilirubin - Negative Bedside Urine Ketone - Negative Urine Specific [place] 1.010 Bedside Urine Occult Blood +/- Bedside Urine pH 6.5 Bedside Urine Protein - Negative Bedside Urine Urobilinogen - Negative Bedside Urine Nitrite - Negative Bedside Urine Leukocytes - Negative Esterase Discharge Plan Departure Patient Disposition: Home Clinical Impression: Ovarian cyst Instructions: DI for Ovarian Cyst Activity Restrictions/Additional Instructions: *You have been diagnosed with a ovarian cyst. We were not able to find a cause for your pain but have ruled out more serious issues such as appendicitis. Your EKG was normal and your ultrasound and CT scan both reveal a ovarian cyst. Your labs were all within normal limits. Please follow-up with your PCP next week. For worsening symptoms that include worsening pain, please return to the emergency department. *What to do: *Please continue to take your regular medications as directed. [ ] New medication prescriptions sent to your pharmacy: [ ] [ ] New medication written as a paper prescription [x ] No new medications given *Please follow up with your primary care provider in 2-3 days, call for an appointment. Let them know you were seen in the Emergency Department and that we ask that you be seen in follow up. We will electronically transmit a record of today's note if your PCP is in our system *If you do not have a primary care provider please contact the [facility] Resource line at [phone]. They will ask some questions about your medical history and help get you set up with a doctor in the community. ? Return to ER if you should have any new, worsening or concerning symptoms, such as worsening pain, severe headache, confusion, chest pain, difficulty hodan athing, fever greater than 101 F, shaking chills, persistent vomiting to the point that you cannot drink fluids, or other new or worsening symptoms. Prescriptions: No Action valacyclovir 500 mg tablet 500 mg PO BID PRN (Reason: flare) Rx Instructions: 500 mg BID x3 days during flare pantoprazole 40 mg tablet,delayed release (DR/EC) 40 mg PO DAILY sucralfate 1 gram tablet 1 g PO QID aluminum-magnesium hydroxide 500-500 mg/5 mL suspension PO .PO PRN ferrous gluconate 324 mg (38 mg iron) tablet 324 mg PO .qod Qty: 45 0RF Rx Instructions: take one tablet with vitamin c every other day, use stool softener as needed. sertraline 150 mg capsule 150 mg PO DAILY Qty: 90 2RF fexofenadine 30 mg Tablet 30 mg PO DAILY multivitamin Tablet,Chewable 2 tab PO DAILY ondansetron HCl [Zofran] 4 mg tablet 4 mg PO Q8H PRN (Reason: nausea and vomiting) Qty: 7 1RF methocarbamol 500 mg tablet 500 mg PO TID Qty: 20 0RF mbrqhgstocbidbz-VI-fjbsszjicct 60-30-400 mg tablet 1 tab PO BID PRN (Reason: sinus symptoms) Qty: 20 0RF Referrals: Chasity Clement ARNP [Primary Care Provider] - Visit Report Forms: Patient Portal/API <Melissa Bo DO - Last Filed: 01/30/22 07:06> Cosign ED Attending Cosrajeshature Attestation: I was immediately available in the department for consultation. Documentation has been reviewed. I agree with assessment and plan.
--- NOTE | 2022-01-27 15:36 | DI.CT.S_ITS ---
PROCEDURE: CT ABDOMEN PELVIS WO CON INDICATIONS: RLQ abd pain TECHNIQUE: Noncontrast 5 mm thick sections acquired from the diaphragms to the symphysis. 5 mm coronal and sagittal reformats were then performed. For radiation dose reduction, the following was used: automated exposure control, adjustment of mA and/or kV according to patient size. COMPARISON: None. FINDINGS: Image quality: Excellent. ABDOMEN: Lung bases: Lung bases are clear. Heart size is normal. Solid organs: Liver is normal in size. Gallbladder is surgically absent . Pancreas is normal in contours. Spleen is normal in size. No adrenal nodules. Kidneys are normal in size, without hydronephrosis. There are bilateral single nonobstructing intrarenal calculi. Punctate on the right and measuring 3 mm on the left. Peritoneum and bowel: Unenhanced bowel loops demonstrate normal wall thickness and caliber. Slightly increased quantity of solid stool present throughout the colon. Normal appendix is seen. No free fluid or air. Nodes and vessels: No retroperitoneal or mesenteric adenopathy by size criteria. Aorta and inferior vena cava are normal in caliber. Miscellaneous: No ventral hernias. PELVIS: Genitourinary: The anteverted uterus is normal size. There is a dominant follicle seen on each ovary. No suspicious adnexal mass. Miscellaneous: No inguinal hernias or adenopathy. Bones: No suspicious bony lesions. No vertebral body compression fractures. IMPRESSION: 1. No acute process. 2. Bilateral nonobstructing intrarenal calculi. 3. Post cholecystectomy. Dictated by: Karmen Aguila M.D. on 01/27/2022 at 16:12 Approved by: Karmen Aguila M.D. on 01/27/2022 at 16:17
[2022-01-27] MEDS: KETOROLAC 30 MG/ML VIAL IV (15:45)
[2022-01-27 16:43] VITALS: BP 108/67; PULSE 83; O2SAT 100
== END 2022-01-27 16:44 | disposition home or self-care (01) ==
PROVIDERS: Emergency Medicine; Emergency Provider Registered Nurse; Family Provider Family Medicine; PCP Nurse Practitioner Family
DX: N83.201 Unspecified ovarian cyst, right side (principal)
CPT/HCPCS: 36415; 74176; 76830; 76856; 80053; 81003; 81015; 81025; 83690; 85025; 93005; 93010; 96374; 99284; J1885

== ENCOUNTER → 2022-06-10 17:43 | Outpatient (CLI) | payer OTHER, SELFPAY ==
[2022-06-10 21:39] LABS: Influenza A - CEPHEID Flu A NEGATIVE (NEGATIVE); Influenza B - CEPHEID Flu B NEGATIVE (NEGATIVE); Respiratory Syncytial Virus Negative (Negative)
[2022-06-10 23:37] LABS: COVID-19 CEPHEID 4-PLEX PCR Negative (Negative)
== END ==
PROVIDERS: Family Provider Family Medicine; PCP Nurse Practitioner Family; Visit Provider Registered Nurse
DX: R05.9 Cough, unspecified (principal)
CPT/HCPCS: 0241U

== ENCOUNTER 2022-07-19 11:44 | Emergency (ER) | payer OTHER, SELFPAY ==
[2022-07-19 11:50] VITALS: BP 122/72; PULSE 83; RESP 15; TEMP 36.6; O2SAT 100; BMI 27.4
[2022-07-19 14:01] LABS: Bacteria Urine None Seen; Culture Indicated Urine Cult Not Indicated; RBC Urine 1-5/HPF (0-5/HPF); Squamous Epithelial Cell Urine 0-1 /HPF (0-5/HPF); WBC Urine None Seen (0-5/HPF)
--- NOTE | 2022-07-19 14:50 | DI.CT.S_ITS ---
PROCEDURE: CT ABDOMEN PELVIS W CON INDICATIONS: History of adenomyosis, right pelvic and flank pain, edema, TECHNIQUE: After the administration of IV contrast, axial sections were acquired from the lung bases to the pubic symphysis. Coronal and sagittal reformats were performed. For radiation dose reduction, the following was used: automated exposure control, adjustment of mA and/or kV according to patient size. COMPARISON: [facility], CT, CT ABDOMEN PELVIS WO [facility], 01/27/2022, 15:45. FINDINGS: Image quality: Excellent. Lung bases: Unremarkable. Heart: No significant findings. ABDOMEN: Liver: Unremarkable. Gallbladder: Removed. Biliary ducts: Unremarkable. Pancreas: Unremarkable. Spleen: Unremarkable. Adrenal Glands: Unremarkable. Kidneys and Ureters: Unremarkable. Stomach and Bowel: Stomach, small bowel loops, and colon are unremarkable. No appendix (either normal or abnormal) is identified on this study. Peritoneum: No free air. Ventral Wall: No hernia. Abdominal Nodes: No retroperitoneal or mesenteric adenopathy by size criteria. Vessels: Aorta and inferior vena cava are normal in size. PELVIS: Pelvic Organs: The uterus is mildly bulky and hyperenhancing. A potential hemorrhagic cyst can be seen involving the left ovary, as on series 3 image 34, measuring 13 mm. No adnexal masses are seen on either side. There is a small amount of free pelvic fluid seen, which is considered to be within physiologic limits. There is a postoperative clip seen involving the left pelvis, as on series 2, image 66. Bladder: Unremarkable. Pelvic Nodes: No enlarged lymph nodes. Miscellaneous: No inguinal hernias are seen. Bones: Unremarkable. IMPRESSION: No imaging explanation is found for this patient's presenting symptoms. Bulky, hyperenhancing uterus, without a focal abnormality seen. Likely hemorrhagic cyst involving the left ovary, 13 mm. Additional findings: Cholecystectomy Fat containing periumbilical hernia Dictated by: Luís Kaplan M.D. on 07/19/2022 at 16:31 Approved by: Luís Kaplan M.D. on 07/19/2022 at 16:34
--- NOTE | 2022-07-19 14:58 | ED.ABDPAIN ---
HPI - Abdominal Pain <Cathy Centeno [facility] - Last Filed: 07/19/22 17:49> General Chief Complaint: Abdominal Pain Stated Complaint: lower R abd pain Time Seen by Provider: 07/19/22 14:19 Source: patient Mode of arrival: Ambulatory History of Present Illness HPI narrative: This is a 37-year-old female with history of adenomyosis, fibromyalgia, anxiety, depression, GERD, who presents to the emergency department for worsening pain and swelling to her right pelvic and flank region. She had a pelvic ultrasound and CT abdomen without contrast completed yesterday at [facility]. Results were not successfully transferred over but did show an enlarged uterus which patient knows that she has, it showed free fluid in the posterior cul-de-sac on the right, today she has edema, erythema and increased tenderness to her right pelvis, it is visibly erythematous. States that she is had mild fever, has history of multiple allergies to antibiotics. Denies vomiting but endorses nausea. [facility] States that her last menstrual period was approximally 30 days ago and she is due for it. Related Data Home Medications Medication Instructions Recorded Confirmed valacyclovir 500 mg tablet 500 mg PO BID PRN flare 10/28/20 05/14/22 fexofenadine 30 mg tablet 30 mg PO DAILY 12/17/20 05/14/22 multivitamin 2 tab PO DAILY 12/17/20 05/14/22 aluminum-magnesium hydroxide 500 ml PO .PO PRN 03/15/21 05/14/22 mg-500 mg/5 mL oral suspension pantoprazole 40 mg tablet,delayed 40 mg PO DAILY 03/15/21 05/14/22 release sucralfate 1 gram tablet 1 g PO QID 03/15/21 05/14/22 Previous Rx's Medication Instructions Recorded ondansetron HCl 4 mg tablet 4 mg PO Q8H PRN nausea and 12/17/20 (Zofran) vomiting #7 tabs ferrous gluconate 324 mg (38 mg 324 mg PO .qod #45 tabs 06/08/21 iron) tablet methocarbamol 500 mg tablet 500 mg PO TID #20 tabs 08/31/21 pseudoephedrine 60 mg-DM 30 1 tab PO BID PRN sinus symptoms 08/31/21 mg-guaifenesin 400 mg tablet #20 tabs sertraline 150 mg capsule 150 mg PO DAILY #90 caps 10/26/21 metronidazole 500 mg tablet 500 mg PO BID 10 days #20 tabs 07/19/22 Allergies Allergy/AdvReac Type Severity Reaction Status Date / Time nitrofurantoin Allergy Severe Swelling Verified 07/19/22 11:52 [From MACROBID] of Lip/Tongue/Throat Sulfa (Sulfonamide Allergy Severe SWEllING Verified 07/19/22 11:52 Antibiotics) [SULFA (SULFONAMIDE ANTIBIOTICS)] azithromycin [AZITHROMYCIN] Allergy Intermediate Verified 07/19/22 11:52 ciprofloxacin [From CIPRO] Allergy Mild Rash Verified 07/19/22 11:52 Penicillins [PENICILLINS] Allergy Unknown Verified 07/19/22 11:52 tapentadol [TAPENTADOL] Allergy Unknown Verified 07/19/22 11:52 codeine [CODEINE] AdvReac Intermediate Nightmare Verified 07/19/22 11:52 zolpidem [From AMBIEN] AdvReac Intermediate Hallucinati Verified 07/19/22 11:52 ng hydrocodone [From NORCO] AdvReac Mild dizziness/s Verified 07/19/22 11:52 yncope Review of Systems <JEREMIAH Kan - Last Filed: 07/19/22 17:49> Review of Systems ROS Unobtainable: All systems reviewed & are unremarkable except as noted in HPI and below Patient History <JEREMIAH Kan - Last Filed: 07/19/22 17:49> Medical History Abdominal bloating Anemia Ankle arthropathy (07/2020) Anxiety (2011) Depression (2011) Encounter for wellness examination in adult (10/28/20) Encounter to establish care Fibromyalgia Frequent UTI GERD (gastroesophageal reflux disease) (2007) Ovarian cyst PTSD (post-traumatic stress disorder) (~2006) SI (sacroiliac) joint dysfunction TMJ (dislocation of temporomandibular joint) Surgical History Anesthesia History of bladder surgery History of cholecystectomy (~2012) History of surgery Family History Father Diabetes mellitus Hypertension Hyperlipidemia Mother Hypertension Grandmother Stroke Grandfather History of heart disease Grandmother History of heart disease Social History household members: spouse Smoking Status: Never smoker second hand exposure: No alcohol intake: never substance use type: does not use Smoking Status: Never smoker alcohol intake frequency: holidays/special occasions only Substance Use Type: does not use Exam <JEREMIAH Kan - Last Filed: 07/19/22 17:49> Narrative Exam Narrative: Reviewed vitals signs and nursing notes. General: cooperative, comfortable, appears in mild distress, well groomed, afebrile HEENT: symmetrical facial expressions, moist mucous membranes Cardiovascular: regular rate and rhythm, no peripheral edema, warm extremities Respiratory: normal effort, able to speak in complete sentences, without wheezing, stridor, or abnormal breath sounds. No retractions or tachypnea. GI: abdomen soft, right pelvis with appears mildly distended and is erythematous, without rash, mild distention without abdominal quadrant tenderness, without CVA tenderness without masses, rebound tenderness or exquisite tenderness with exam. MSK: moves all extremities, neurovascularly intact, no weakness, normal tone Skin: brisk capillary refill, without pallor or erythema Neuro: normal speech and cognition, A&O x3, ambulatory, clear speech Psych: mental status is grossly normal, congruent mood, normal affect, pleasant and cooperative Initial Vital Signs Initial Vital Signs: Vital Signs Temperature 97.9 F 07/19/22 11:50 Pulse Rate 83 07/19/22 11:50 Respiratory Rate 15 07/19/22 11:50 Blood Pressure 122/72 07/19/22 11:50 Pulse Oximetry 100 07/19/22 11:50 Oxygen Delivery Method 07/19/22 11:50 <Melissa Bo DO - Last Filed: 07/22/22 07:50> Initial Vital Signs Initial Vital Signs: Vital Signs Temperature 97.9 F 07/19/22 11:50 Pulse Rate 83 07/19/22 11:50 Respiratory Rate 15 07/19/22 11:50 Blood Pressure 122/72 07/19/22 11:50 Pulse Oximetry 100 07/19/22 11:50 Oxygen Delivery Method 07/19/22 11:50 Course <JEREMIAH Kan - Last Filed: 07/19/22 17:49> Course Course Narrative: Attempted to obtain radiology reports from [facility] without success x2. I instead read the radiology report often patient's phone which show results as stated in HPI Additional Information: 1630 Patient still does not have an IV established, multiple attempts have been made by nursing staff, she is pending IV placement for CT of her abdomen. 1644, IV established to patient's right wrist in superficial vein, patient is leaving a urine sample for G and C, she is self swabbing for history of bacterial vaginosis and will send down for wet mount. Name: Aziza Maldonado Age/Sex: 37/F Attend Dr: Cathy Centeno Unit#: [id number] : 1985Location: ED Re07/19/22 Disch: Status: REG ER SPEC #: [id number] CHERYL: 07/19/22 STATUS: COMP REQ #: [id number] SPDESC: RECD: 07/19/22-[address]: Cathy Centeno SOURCE: Vaginal ENTR: 07/19/[address]: Chasity Clement FAX TO: ORDERED: Wet Prep Procedure Result Verified Site Wet Prep Tric BV Teresa Final 07/19/22 White blood cells Few WBCs Clue cells: None seen Yeast: None seen Trichomonas: None seen Orders Ordered: Discontinued Medications Hydromorphone HCl (Hydromorphone 0.5 Mg Inj) 0.5 mg IV NOW ONE Stop: 07/19/22 15:01 Last Admin: 07/19/22 17:36 Dose: 0.5 mg Documented By: BECKY Sodium Chloride (Normal Saline 0.9%) 1,000 mls @ 1,000 mls/hr IV BOLUS ONE Stop: 07/19/22 18:04 Last Admin: 07/19/22 17:36 Dose: 1,000 mls/hr Documented By: BECKY Ketorolac Tromethamine (Ketorolac 30 Mg/Ml Vial) 15 mg IV NOW ONE Stop: 07/19/22 15:01 Last Admin: 07/19/22 17:35 Dose: 15 mg Documented By: BECKY Metronidazole (Metronidazole 500 Mg Tablet) 500 mg PO NOW ONE Stop: 07/19/22 17:07 Last Admin: 07/19/22 17:36 Dose: 500 mg Documented By: BECKY Vital Signs Vital signs: Vital Signs - 8 hr 07/19/22 11:50 Temperature 97.9 F Pulse Rate 83 Respiratory Rate 15 Blood Pressure 122/72 Pulse Oximetry 100 Oxygen Delivery Method Room Air <Melissa Bo DO - Last Filed: 07/22/22 07:50> Orders Ordered: Discontinued Medications Hydromorphone HCl (Hydromorphone 0.5 Mg Inj) 0.5 mg IV NOW ONE Stop: 07/19/22 15:01 Last Admin: 07/19/22 17:36 Dose: 0.5 mg Documented By: BECKY Sodium Chloride (Normal Saline 0.9%) 1,000 mls @ 1,000 mls/hr IV BOLUS ONE Stop: 07/19/22 18:04 Last Admin: 07/19/22 17:36 Dose: 1,000 mls/hr Documented By: BECKY Ketorolac Tromethamine (Ketorolac 30 Mg/Ml Vial) 15 mg IV NOW ONE Stop: 07/19/22 15:01 Last Admin: 07/19/22 17:35 Dose: 15 mg Documented By: BECKY Metronidazole (Metronidazole 500 Mg Tablet) 500 mg PO NOW ONE Stop: 07/19/22 17:07 Last Admin: 07/19/22 17:36 Dose: 500 mg Documented By: BECKY Vital Signs Vital signs: Vital Signs - 8 hr 07/19/22 11:50 Temperature 97.9 F Pulse Rate 83 Respiratory Rate 15 Blood Pressure 122/72 Pulse Oximetry 100 Oxygen Delivery Method Room Air MDM - Abdominal Pain <JEREMIAH Kan - Last Filed: 07/19/22 17:49> Lab Data Result diagrams: 07/19/22 16:35 07/19/22 16:35 Labs: Lab Results 07/19/22 07/19/22 07/19/22 Range/Units 12:52 16:35 16:35 WBC 7.5 (4.5-11.0) X10^3/uL RBC 3.98 L (4.0-5.2) X10^6/uL Hgb 12.1 (12.0-16.0) g/dL Hct 35.4 L (36-46) % MCV 89.0 (80-100) fL MCH 30.3 (26-34) PG MCHC 34.0 (30-36) % RDW 13.1 (11.6-14.8) % Plt Count 386 (150-400) X10^3/uL Neut % (Auto) 61.8 (50-75) % Lymph % (Auto) 32.4 (25-40) % Callahan % (Auto) 4.8 (3-14) % Eos % (Auto) 0.6 L (2-4) % Baso % (Auto) 0.4 (0-2) % Neut # (Auto) 4700 (7978-4142) /uL Lymph # (Auto) 2400 (6427-6332) /uL Callahan # (Auto) 400 (0-900) /uL Eos # (Auto) 0 (0-450) /uL Baso # (Auto) 0 (0-100) /uL Sodium 137 (137-145) mmol/L Potassium 3.7 (3.4-5.1) mmol/L Chloride 100 (98-107) mmol/L Carbon Dioxide 24 (22-32) mmol/L BUN 9 (7-17) mg/dL Creatinine 0.45 L (0.52-1.04) mg/dL Estimated GFR > 60 (>60) mL/min BUN/Creatinine Ratio 20.0 (6-22) Glucose 73 (70-100) mg/dL Lactate (0.7-2.1) mmol/L Calcium 8.7 (8.4-10.2) mg/dL Total Bilirubin 0.4 (0.2-1.3) mg/dL AST 29 (14-36) IU/L ALT 22 (<35) IU/L Alkaline Phosphatase 76 (38-126) U/L C-Reactive Protein < 0.5 (<1.0) mg/dL Total Protein 7.9 (6.3-8.2) g/dL Albumin 4.4 (3.5-5.0) g/dL Globulin 3.5 (1.7-4.1) g/dL Albumin/Globulin Ratio 1.3 (1.0-2.8) Procalcitonin < 0.03 (<0.5) ng/mL HCG, Quant mIU/mL Urine RBC 1-5/hpf (0-5/HPF) Urine WBC None seen (0-5/HPF) Ur Squamous Epith Cells 0-1 /hpf (0-5/HPF) Urine Bacteria None seen (None) Ur Culture Indicated? Cult not indicated Ur Chlamydia DNA (PCR) N gonorrhoeae DNA (PCR) Blood Type 07/19/22 07/19/22 07/19/22 Range/Units 16:35 16:35 16:40 WBC (4.5-11.0) X10^3/uL RBC (4.0-5.2) X10^6/uL Hgb (12.0-16.0) g/dL Hct (36-46) % MCV (80-100) fL MCH (26-34) PG MCHC (30-36) % RDW (11.6-14.8) % Plt Count (150-400) X10^3/uL Neut % (Auto) (50-75) % Lymph % (Auto) (25-40) % Callahan % (Auto) (3-14) % Eos % (Auto) (2-4) % Baso % (Auto) (0-2) % Neut # (Auto) (0999-5796) /uL Lymph # (Auto) (0955-1253) /uL Callahan # (Auto) (0-900) /uL Eos # (Auto) (0-450) /uL Baso # (Auto) (0-100) /uL Sodium (137-145) mmol/L Potassium (3.4-5.1) mmol/L Chloride (98-107) mmol/L Carbon Dioxide (22-32) mmol/L BUN (7-17) mg/dL Creatinine (0.52-1.04) mg/dL Estimated GFR (>60) mL/min BUN/Creatinine Ratio (6-22) Glucose (70-100) mg/dL Lactate 1.3 (0.7-2.1) mmol/L Calcium (8.4-10.2) mg/dL Total Bilirubin (0.2-1.3) mg/dL AST (14-36) IU/L ALT (<35) IU/L Alkaline Phosphatase (38-126) U/L C-Reactive Protein (<1.0) mg/dL Total Protein (6.3-8.2) g/dL Albumin (3.5-5.0) g/dL Globulin (1.7-4.1) g/dL Albumin/Globulin Ratio (1.0-2.8) Procalcitonin (<0.5) ng/mL HCG, Quant < 2.4 mIU/mL Urine RBC (0-5/HPF) Urine WBC (0-5/HPF) Ur Squamous Epith Cells (0-5/HPF) Urine Bacteria (None) Ur Culture Indicated? Ur Chlamydia DNA (PCR) Not detected N gonorrhoeae DNA (PCR) Not detected Blood Type 07/19/22 Range/Units 16:49 WBC (4.5-11.0) X10^3/uL RBC (4.0-5.2) X10^6/uL Hgb (12.0-16.0) g/dL Hct (36-46) % MCV (80-100) fL MCH (26-34) PG MCHC (30-36) % RDW (11.6-14.8) % Plt Count (150-400) X10^3/uL Neut % (Auto) (50-75) % Lymph % (Auto) (25-40) % Callahan % (Auto) (3-14) % Eos % (Auto) (2-4) % Baso % (Auto) (0-2) % Neut # (Auto) (3691-2675) /uL Lymph # (Auto) (8926-3753) /uL Callahan # (Auto) (0-900) /uL Eos # (Auto) (0-450) /uL Baso # (Auto) (0-100) /uL Sodium (137-145) mmol/L Potassium (3.4-5.1) mmol/L Chloride (98-107) mmol/L Carbon Dioxide (22-32) mmol/L BUN (7-17) mg/dL Creatinine (0.52-1.04) mg/dL Estimated GFR (>60) mL/min BUN/Creatinine Ratio (6-22) Glucose (70-100) mg/dL Lactate (0.7-2.1) mmol/L Calcium (8.4-10.2) mg/dL Total Bilirubin (0.2-1.3) mg/dL AST (14-36) IU/L ALT (<35) IU/L Alkaline Phosphatase (38-126) U/L C-Reactive Protein (<1.0) mg/dL Total Protein (6.3-8.2) g/dL Albumin (3.5-5.0) g/dL Globulin (1.7-4.1) g/dL Albumin/Globulin Ratio (1.0-2.8) Procalcitonin (<0.5) ng/mL HCG, Quant mIU/mL Urine RBC (0-5/HPF) Urine WBC (0-5/HPF) Ur Squamous Epith Cells (0-5/HPF) Urine Bacteria (None) Ur Culture Indicated? Ur Chlamydia DNA (PCR) N gonorrhoeae DNA (PCR) Blood Type O Positive Point of care testing: Point of Care Testing Test Results Negative Urine Dip Bedside Urine Glucose Negative Bedside Urine Bilirubin - Negative Bedside Urine Ketone - Negative Urine Specific [place] 1.010 Bedside Urine Occult Blood +/- Bedside Urine pH 6.0 Bedside Urine Protein - Negative Bedside Urine Urobilinogen - Negative Bedside Urine Nitrite - Negative Bedside Urine Leukocytes - Negative Esterase Imaging Data CT scan - abdomen/pelvis: Radiologist's Impression: PROCEDURE:? CT ABDOMEN PELVIS W CON ? INDICATIONS:? History of adenomyosis, right pelvic and flank pain, edema, ? TECHNIQUE:? After the administration of IV contrast, axial sections were acquired from the lung bases to the pubic symphysis.? Coronal and sagittal reformats were performed.? For radiation dose reduction, the following was used:? automated exposure control, adjustment of mA and/or kV according to patient size. ? COMPARISON:? [facility], CT, CT ABDOMEN PELVIS WO CON, 01/27/2022, 15:45. ? FINDINGS:? Image quality:? Excellent.? ? Lung bases:? Unremarkable.? ? Heart:? No significant findings. ? ? ABDOMEN: Liver:? Unremarkable.? ? Gallbladder:? Removed.? ? Biliary ducts:? Unremarkable.? ? Pancreas:? Unremarkable.? ? Spleen:? Unremarkable.? ? Adrenal Glands:? Unremarkable.? ? Kidneys and Ureters:? Unremarkable.? ? ? Stomach and Bowel:? Stomach, small bowel loops, and colon are unremarkable.? No appendix (either normal or abnormal) is identified on this study.? Peritoneum:? No free air.? ? Ventral Wall: ? No hernia.? Abdominal Nodes:? No retroperitoneal or mesenteric adenopathy by size criteria.? Vessels:? Aorta and inferior vena cava are normal in size.? ? PELVIS: Pelvic Organs:? The uterus is mildly bulky and hyperenhancing.? A potential hemorrhagic cyst can be seen involving the left ovary, as on series 3 image 34, measuring 13 mm. No adnexal masses are seen on either side.? There is a small amount of free pelvic fluid seen, which is considered to be within physiologic limits.? There is a postoperative clip seen involving the left pelvis, as on series 2, image 66.? Bladder:? Unremarkable.? ? Pelvic Nodes: No enlarged lymph nodes.? Miscellaneous: No inguinal hernias are seen. ? ? ? Bones:? Unremarkable.? IMPRESSION:? ? No imaging explanation is found for this patient's presenting symptoms.? ? Bulky, hyperenhancing uterus, without a focal abnormality seen. ? Likely hemorrhagic cyst involving the left ovary, 13 mm. ? ? ? Additional findings: Cholecystectomy Fat containing periumbilical hernia? ? Dictated by: Luís Kaplan M.D. on 07/19/2022 at 16:31 ? ? Approved by: Luís Kaplan M.D. on 07/19/2022 at 16:34 ? [facility] Narrative Medical decision making narrative: This is a 37-year-old female with history of fibromyalgia, adenomyosis, ovarian cyst, HSV, bacterial vaginitis, and is a who presents to the emergency department with right-sided pelvic pain which she states has gotten worse over the last 3 days. Her PCP ordered a noncontrast CT scan and ultrasound of her pelvis and abdomen which were not sent over but I viewed the radiologist report on her phone, it showed a small amount of pelvic fluid, an enlarged uterus which is consistent with her prior exams, she has right-sided pelvic pain and endorses abnormal vaginal discharge for the last few days. Her wet prep is positive for white blood cells in the vagina, treated her with Flagyl for vaginitis as she has a history of this and endorses symptoms. No leukocytosis or anemia, no electrolyte abnormalities or end-organ dysfunction, no lactic acidosis, no elevation of liver enzymes, CRP or procalcitonin. Urine was negative, UA is negative for WBCs, RBCs, and nitrites. Urine gonorrhea and chlamydia still pending, will update chart if this is positive. Patient denies any respiratory symptoms. She does not have an OBGYN just a primary care provider. She states that she felt dehydrated but did not have any vomiting or diarrhea and was given 1 L of IV fluids. She states that she felt much better after pain medication. Patient has multiple allergies. Abdominal CT shows a bulky hyperenhancing uterus without a focal abnormality seen, without masses, likely a ruptured hemorrhagic cyst involving the left ovary, 13 mm., No peritoneal signs on abdominal exam. Patient remains p.o. tolerant. Serial abdominal exam without increase in abdominal pain. Differential diagnosis include surgical biliary disease, pancreatitis, STI, perforated viscus, appendicitis, colitis, diverticulitis, IBS, intestinal ischemia, ectopic , ovarian cyst, acute cystitis, PID, AAA, hernia. She had a vaginal ultrasound completed yesterday at [facility] that did not show any other acute abnormalities. Doubt atypical ACS. Extensive conversation about ER return precautions and need for close follow-up. Recommend she follow-up with OBGYN and return for worsening symptoms. <Melissa Bo, DO - Last Filed: 07/22/22 07:50> Lab Data Labs: Lab Results 07/19/22 07/19/22 07/19/22 Range/Units 12:52 16:35 16:35 WBC 7.5 (4.5-11.0) X10^3/uL RBC 3.98 L (4.0-5.2) X10^6/uL Hgb 12.1 (12.0-16.0) g/dL Hct 35.4 L (36-46) % MCV 89.0 (80-100) fL MCH 30.3 (26-34) PG MCHC 34.0 (30-36) % RDW 13.1 (11.6-14.8) % Plt Count 386 (150-400) X10^3/uL Neut % (Auto) 61.8 (50-75) % Lymph % (Auto) 32.4 (25-40) % Callahan % (Auto) 4.8 (3-14) % Eos % (Auto) 0.6 L (2-4) % Baso % (Auto) 0.4 (0-2) % Neut # (Auto) 4700 (7950-3124) /uL Lymph # (Auto) 2400 (1781-7962) /uL Callahan # (Auto) 400 (0-900) /uL Eos # (Auto) 0 (0-450) /uL Baso # (Auto) 0 (0-100) /uL Sodium 137 (137-145) mmol/L Potassium 3.7 (3.4-5.1) mmol/L Chloride 100 (98-107) mmol/L Carbon Dioxide 24 (22-32) mmol/L BUN 9 (7-17) mg/dL Creatinine 0.45 L (0.52-1.04) mg/dL Estimated GFR > 60 (>60) mL/min BUN/Creatinine Ratio 20.0 (6-22) Glucose 73 (70-100) mg/dL Lactate (0.7-2.1) mmol/L Calcium 8.7 (8.4-10.2) mg/dL Total Bilirubin 0.4 (0.2-1.3) mg/dL AST 29 (14-36) IU/L ALT 22 (<35) IU/L Alkaline Phosphatase 76 (38-126) U/L C-Reactive Protein < 0.5 (<1.0) mg/dL Total Protein 7.9 (6.3-8.2) g/dL Albumin 4.4 (3.5-5.0) g/dL Globulin 3.5 (1.7-4.1) g/dL Albumin/Globulin Ratio 1.3 (1.0-2.8) Procalcitonin < 0.03 (<0.5) ng/mL HCG, Quant mIU/mL Urine RBC 1-5/hpf (0-5/HPF) Urine WBC None seen (0-5/HPF) Ur Squamous Epith Cells 0-1 /hpf (0-5/HPF) Urine Bacteria None seen (None) Ur Culture Indicated? Cult not indicated Ur Chlamydia DNA (PCR) N gonorrhoeae DNA (PCR) Blood Type 07/19/22 07/19/22 07/19/22 Range/Units 16:35 16:35 16:40 WBC (4.5-11.0) X10^3/uL RBC (4.0-5.2) X10^6/uL Hgb (12.0-16.0) g/dL Hct (36-46) % MCV (80-100) fL MCH (26-34) PG MCHC (30-36) % RDW (11.6-14.8) % Plt Count (150-400) X10^3/uL Neut % (Auto) (50-75) % Lymph % (Auto) (25-40) % Callahan % (Auto) (3-14) % Eos % (Auto) (2-4) % Baso % (Auto) (0-2) % Neut # (Auto) (7296-3752) /uL Lymph # (Auto) (1907-4751) /uL Callahan # (Auto) (0-900) /uL Eos # (Auto) (0-450) /uL Baso # (Auto) (0-100) /uL Sodium (137-145) mmol/L Potassium (3.4-5.1) mmol/L Chloride (98-107) mmol/L Carbon Dioxide (22-32) mmol/L BUN (7-17) mg/dL Creatinine (0.52-1.04) mg/dL Estimated GFR (>60) mL/min BUN/Creatinine Ratio (6-22) Glucose (70-100) mg/dL Lactate 1.3 (0.7-2.1) mmol/L Calcium (8.4-10.2) mg/dL Total Bilirubin (0.2-1.3) mg/dL AST (14-36) IU/L ALT (<35) IU/L Alkaline Phosphatase (38-126) U/L C-Reactive Protein (<1.0) mg/dL Total Protein (6.3-8.2) g/dL Albumin (3.5-5.0) g/dL Globulin (1.7-4.1) g/dL Albumin/Globulin Ratio (1.0-2.8) Procalcitonin (<0.5) ng/mL HCG, Quant < 2.4 mIU/mL Urine RBC (0-5/HPF) Urine WBC (0-5/HPF) Ur Squamous Epith Cells (0-5/HPF) Urine Bacteria (None) Ur Culture Indicated? Ur Chlamydia DNA (PCR) Not detected N gonorrhoeae DNA (PCR) Not detected Blood Type 07/19/22 Range/Units 16:49 WBC (4.5-11.0) X10^3/uL RBC (4.0-5.2) X10^6/uL Hgb (12.0-16.0) g/dL Hct (36-46) % MCV (80-100) fL MCH (26-34) PG MCHC (30-36) % RDW (11.6-14.8) % Plt Count (150-400) X10^3/uL Neut % (Auto) (50-75) % Lymph % (Auto) (25-40) % Callahan % (Auto) (3-14) % Eos % (Auto) (2-4) % Baso % (Auto) (0-2) % Neut # (Auto) (0680-3118) /uL Lymph # (Auto) (3033-4863) /uL Callahan # (Auto) (0-900) /uL Eos # (Auto) (0-450) /uL Baso # (Auto) (0-100) /uL Sodium (137-145) mmol/L Potassium (3.4-5.1) mmol/L Chloride (98-107) mmol/L Carbon Dioxide (22-32) mmol/L BUN (7-17) mg/dL Creatinine (0.52-1.04) mg/dL Estimated GFR (>60) mL/min BUN/Creatinine Ratio (6-22) Glucose (70-100) mg/dL Lactate (0.7-2.1) mmol/L Calcium (8.4-10.2) mg/dL Total Bilirubin (0.2-1.3) mg/dL AST (14-36) IU/L ALT (<35) IU/L Alkaline Phosphatase (38-126) U/L C-Reactive Protein (<1.0) mg/dL Total Protein (6.3-8.2) g/dL Albumin (3.5-5.0) g/dL Globulin (1.7-4.1) g/dL Albumin/Globulin Ratio (1.0-2.8) Procalcitonin (<0.5) ng/mL HCG, Quant mIU/mL Urine RBC (0-5/HPF) Urine WBC (0-5/HPF) Ur Squamous Epith Cells (0-5/HPF) Urine Bacteria (None) Ur Culture Indicated? Ur Chlamydia DNA (PCR) N gonorrhoeae DNA (PCR) Blood Type O Positive Point of care testing: Point of Care Testing Test Results Negative Urine Dip Bedside Urine Glucose Negative Bedside Urine Bilirubin - Negative Bedside Urine Ketone - Negative Urine Specific [place] 1.010 Bedside Urine Occult Blood +/- Bedside Urine pH 6.0 Bedside Urine Protein - Negative Bedside Urine Urobilinogen - Negative Bedside Urine Nitrite - Negative Bedside Urine Leukocytes - Negative Esterase Discharge Plan Departure Patient Disposition: Home Clinical Impression: Pelvic pain Vaginitis Qualifiers: Chronicity: acute Qualified Code(s): N76.0 - Acute vaginitis Ovarian cyst Qualifiers: Laterality: left Qualified Code(s): N83.202 - Unspecified ovarian cyst, left side Instructions: DI for Pelvic Pain Activity Restrictions/Additional Instructions: *You have been diagnosed with vaginitis, please take Flagyl twice a day for the next 10 days, this will help take care of that infection. Please stay hydrated, take ibuprofen 800 mg every 8 hours with food and water to help treat your pain, please take Tylenol 650 mg every [address] Your CT shows likely a hemorrhagic cyst on the left which should start to get better, a small amount of free fluid in the pelvis but is within normal physiologic limits. No enlarged lymph nodes, no abnormal lab work other than the wet prep which was positive for white blood cells in the vagina. Please return to the emergency department for worsening pain and or symptoms. This does not appear to be dangerous today, please schedule an appointment for follow-up about this especially if you do not have improvement of your pain. I hope you feel better soon. If there are no masses seen on the right today in your pain is worse on the right, it could have been a cyst that also ruptured and caused the free fluid in your pelvis. *What to do: *Please continue to take your regular medications as directed. [ x] New medication prescriptions sent to your pharmacy: [facility] ] [ ] New medication written as a paper prescription [ ] No new medications given *Please follow up with your primary care provider in 2-3 days, call for an appointment. Let them know you were seen in the Emergency Department and that we asked that you be seen for follow-up. We will electronically transmit a record of today's note if your PCP is in our system *If you do not have a primary care provider please contact [phone] to establish care with one of the [facility] primary care providers. *Return to Emergency Department if you should have any new, worsening, or concerning symptoms, such as [fever greater than 101F, chills, worsening pain, persistent vomiting or other bothersome symptoms]. Prescriptions: New metronidazole 500 mg tablet 500 mg PO BID 10 Days Qty: 20 0RF No Action valacyclovir 500 mg tablet 500 mg PO BID PRN (Reason: flare) Rx Instructions: 500 mg BID x3 days during flare pantoprazole 40 mg tablet,delayed release (DR/EC) 40 mg PO DAILY sucralfate 1 gram tablet 1 g PO QID aluminum-magnesium hydroxide 500-500 mg/5 mL suspension PO .PO PRN ferrous gluconate 324 mg (38 mg iron) tablet 324 mg PO .qod Qty: 45 0RF Rx Instructions: take one tablet with vitamin c every other day, use stool softener as needed. sertraline 150 mg capsule 150 mg PO DAILY Qty: 90 2RF fexofenadine 30 mg Tablet 30 mg PO DAILY multivitamin Tablet,Chewable 2 tab PO DAILY ondansetron HCl [Zofran] 4 mg tablet 4 mg PO Q8H PRN (Reason: nausea and vomiting) Qty: 7 1RF methocarbamol 500 mg tablet 500 mg PO TID Qty: 20 0RF iczjynftwqbionp-OW-kvdoffjjjdh 60-30-400 mg tablet 1 tab PO BID PRN (Reason: sinus symptoms) Qty: 20 0RF Referrals: Yudi Mckeon MD [Physician] - As soon as possible (For recheck) Chasity Clement BROKER ASSISTANT [Primary Care Provider] - Stand Alone Forms: Patient Portal/API <Melissa Bo DO - Last Filed: 07/22/22 07:50> Cosign ED Attending Viraj Attestation: I was immediately available in the department for consultation. Documentation has been reviewed. I agree with assessment and plan.
[2022-07-19 17:09] LABS: Add Manual Diff / Slide Review NO; Basophils Absolute Auto 0 /uL (0-100); Basophils Percent Auto 0.4 % (0-2); Eosinophils Absolute Auto 0 /uL (0-450); Eosinophils Percent Auto 0.6 % (2-4); Hematocrit 35.4 % (36-46); Hemoglobin 12.1 g/dL (12.0-16.0); Lymphocytes Absolute Auto 2400 /uL (1100-4500); Lymphocytes Percent Auto 32.4 % (25-40); Mean Corpuscular Hemoglobin 30.3 PG (26-34); Monocytes Absolute Auto 400 /uL (0-900); Monocytes Percent Auto 4.8 % (3-14); Neutrophils Absolute Auto 4700 /uL (1500-7000); Neutrophils Percent Auto 61.8 % (50-75); Platelet Count 386 X10^3/uL (150-400); Red Blood Cell Count 3.98 X10^6/uL (4.0-5.2); Red Cell Distribution Width 13.1 % (11.6-14.8); White Blood Cell Count 7.5 X10^3/uL (4.5-11.0)
[2022-07-19 17:23] LABS: Lactate (Lactic Acid) 1.3 mmol/L (0.7-2.1)
[2022-07-19 17:27] LABS: Alanine Aminotransferase 22 IU/L (<35); Albumin 4.4 g/dL (3.5-5.0); Albumin Globulin Ratio 1.3 (1.0-2.8); Alkaline Phosphatase 76 U/L (38-126); Aspartate Aminotransferase 29 IU/L (14-36); Bilirubin Total 0.4 mg/dL (0.2-1.3); Blood Urea Nitrogen 9 mg/dL (7-17); C-Reactive Protein Quant < 0.5 mg/dL (<1.0); Calcium 8.7 mg/dL (8.4-10.2); Carbon Dioxide 24 mmol/L (22-32); Chloride 100 mmol/L (98-107); Estimated Glomerular Filt Rate > 60 mL/min (>60); Globulin 3.5 g/dL (1.7-4.1); Glucose 73 mg/dL (70-100); HEMOLYSIS < 15 (0-50); Potassium 3.7 mmol/L (3.4-5.1); Sodium 137 mmol/L (137-145); Total Protein 7.9 g/dL (6.3-8.2)
[2022-07-19] MEDS: KETOROLAC 30 MG/ML VIAL 15 MG IV (17:35)
[2022-07-19] MEDS: HYDROMORPHONE 0.5 MG INJ IV (17:36)
[2022-07-19] MEDS: metroNIDAZOLE 500 MG TABLET PO (17:36)
[2022-07-19] MEDS: SODIUM CHLORIDE 0.9% 1,000 ML 1000 ML IV (17:36)
[2022-07-19 17:41] LABS: Procalcitonin < 0.03 ng/mL (<0.5)
[2022-07-19 17:42] VITALS: BP 109/76; PULSE 73; O2SAT 99
[2022-07-19 17:42] LABS: HCG Quantitative /Beta subunit < 2.4 mIU/mL
[2022-07-19 18:04] VITALS: TEMP 36.7
[2022-07-19 18:05] VITALS: TEMP 36.7
[2022-07-19 18:47] LABS: Urine Chlamydia NOT DETECTED; Urine N gonorrhoeae NOT DETECTED
== END 2022-07-19 18:07 | disposition home or self-care (01) ==
PROVIDERS: Emergency Medicine; Emergency Provider Nurse Practitioner Critical Care Medicine; Family Provider Family Medicine; PCP Nurse Practitioner Family
DX: R10.2 Pelvic and perineal pain (principal); N76.0 Acute vaginitis; N83.202 Unspecified ovarian cyst, left side
CPT/HCPCS: 36415; 74177; 80053; 81003; 81015; 81025; 83605; 84145; 84702; 85025; 86140; 86900; 86901; 87210; 87491; 87591; 96374; 96375; 99284; J1170; J1885; Q9967

== ENCOUNTER 2022-07-25 11:07 | Emergency (ER) | payer OTHER, SELFPAY ==
[2022-07-25 11:13] VITALS: BP 114/72; PULSE 60; RESP 18; TEMP 36.8; O2SAT 99; BMI 25.7
--- NOTE | 2022-07-25 12:12 | ED.ABDPAIN ---
HPI - Abdominal Pain General Chief Complaint: Abdominal Pain Stated Complaint: abd pain getting worse T-1 Time Seen by Provider: 07/25/22 12:12 Source: patient Mode of arrival: Family Vehicle History of Present Illness HPI narrative: 37-year-old female presenting with persistent abdominal pain localized to the right lower quadrant in the setting of multiple recent evaluations in area emergency department's and outpatient setting. Patient reports presenting last week after she developed symptoms, had CT imaging of the abdomen both without contrast and with contrast, this did not show clear evidence of acute pathology. Presents for repeat evaluation. Related Data Home Medications Medication Instructions Recorded Confirmed valacyclovir 500 mg tablet 500 mg PO BID PRN flare 10/28/20 05/14/22 fexofenadine 30 mg tablet 30 mg PO DAILY 12/17/20 05/14/22 multivitamin 2 tab PO DAILY 12/17/20 05/14/22 aluminum-magnesium hydroxide 500 ml PO .PO PRN 03/15/21 05/14/22 mg-500 mg/5 mL oral suspension pantoprazole 40 mg tablet,delayed 40 mg PO DAILY 03/15/21 05/14/22 release sucralfate 1 gram tablet 1 g PO QID 03/15/21 05/14/22 Previous Rx's Medication Instructions Recorded ondansetron HCl 4 mg tablet 4 mg PO Q8H PRN nausea and 12/17/20 (Zofran) vomiting #7 tabs ferrous gluconate 324 mg (38 mg 324 mg PO .qod #45 tabs 06/08/21 iron) tablet methocarbamol 500 mg tablet 500 mg PO TID #20 tabs 08/31/21 pseudoephedrine 60 mg-DM 30 1 tab PO BID PRN sinus symptoms 08/31/21 mg-guaifenesin 400 mg tablet #20 tabs sertraline 150 mg capsule 150 mg PO DAILY #90 caps 10/26/21 Allergies Allergy/AdvReac Type Severity Reaction Status Date / Time nitrofurantoin Allergy Severe Swelling Verified 07/25/22 11:27 [From MACROBID] of Lip/Tongue/Throat Sulfa (Sulfonamide Allergy Severe SWEllING Verified 07/25/22 11:27 Antibiotics) [SULFA (SULFONAMIDE ANTIBIOTICS)] azithromycin [AZITHROMYCIN] Allergy Intermediate Verified 07/25/22 11:27 ciprofloxacin [From CIPRO] Allergy Mild Rash Verified 07/25/22 11:27 Penicillins [PENICILLINS] Allergy Unknown Verified 07/25/22 11:27 tapentadol [TAPENTADOL] Allergy Unknown Verified 07/25/22 11:27 codeine [CODEINE] AdvReac Intermediate Nightmare Verified 07/25/22 11:27 zolpidem [From AMBIEN] AdvReac Intermediate Hallucinati Verified 07/25/22 11:27 ng Review of Systems Review of Systems Narrative: Constitutional, Eyes, ENT, Pulmonary, Cardiovascular, Gastrointestinal, Renal, Endocrine, Genitourinary, Musculoskeletal, Neurologic, Skin, and Psychiatric systems were reviewed and negative unless indicated in the HPI above. 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) Anxiety (2011) Depression (2011) Encounter for wellness examination in adult (10/28/20) Encounter to establish care Fibromyalgia Frequent UTI GERD (gastroesophageal reflux disease) (2007) Ovarian cyst PTSD (post-traumatic stress disorder) (~2006) SI (sacroiliac) joint dysfunction TMJ (dislocation of temporomandibular joint) Surgical History Anesthesia History of bladder surgery History of cholecystectomy (~2012) History of surgery Family History Father Diabetes mellitus Hypertension Hyperlipidemia Mother Hypertension Grandmother Stroke Grandfather History of heart disease Grandmother History of heart disease Social History household members: spouse Smoking Status: Never smoker second hand exposure: No alcohol intake: never substance use type: does not use Smoking Status: Never smoker alcohol intake frequency: holidays/special occasions only Substance Use Type: does not use Exam Narrative Exam Narrative: Vitals reviewed. Nursing note reviewed Constitutional: interactive HENT: Moist mucous membranes EYES: No scleral icterus NECK: no masses CV: Well perfused peripherally, no cyanosis present PULM: Unlabored respirations, symmetric chest rise ABD: Non-distended MS: No gross deformities, no asymmetric edema noted SKIN: Warm and dry. PSYCH: Appropriate affect NEURO: Follows simple commands, moves extremities, interactive with exam Initial Vital Signs Initial Vital Signs: Vital Signs Temperature 98.2 F 07/25/22 11:13 Pulse Rate 60 07/25/22 11:13 Respiratory Rate 18 07/25/22 11:13 Blood Pressure 114/72 07/25/22 11:13 Pulse Oximetry 99 07/25/22 11:13 Oxygen Delivery Method 07/25/22 11:13 Course Orders Ordered: Discontinued Medications Sodium Chloride (Normal Saline 0.9%) 1,000 mls @ 1,000 mls/hr IV BOLUS ONE Stop: 07/25/22 13:34 Last Infusion: 07/25/22 15:59 Dose: 0 mls/hr Documented By: Admin: 07/25/22 14:05 Dose: 1,000 mls/hr Documented By: KALLI Ketorolac Tromethamine (Ketorolac 30 Mg/Ml Vial) 15 mg IV NOW ONE Stop: 07/25/22 12:36 Last Admin: 07/25/22 14:06 Dose: 15 mg Documented By: KALLI Metoclopramide HCl (Metoclopramide 10 Mg/2 Ml Inj) 10 mg IV NOW ONE Stop: 07/25/22 12:36 Last Admin: 07/25/22 15:58 Dose: Not Given Documented By: FERN Ondansetron HCl (Ondansetron 4 Mg Odt) 4 mg PO NOW PRN PRN Reason: Nausea And Vomiting Ondansetron HCl (Ondansetron 4 Mg/2 Ml Inj) 4 mg IV NOW PRN PRN Reason: Nausea And Vomiting Last Admin: 07/25/22 14:12 Dose: 4 mg Documented By: KALLI Vital Signs Vital signs: Vital Signs - 8 hr 07/25/22 11:13 Temperature 98.2 F Pulse Rate 60 Respiratory Rate 18 Blood Pressure 114/72 Pulse Oximetry 99 Oxygen Delivery Method Room Air MDM - Abdominal Pain Lab Data Result diagrams: 07/25/22 12:20 07/25/22 12:20 Labs: Lab Results 07/25/22 07/25/22 Range/Units 12:20 12:20 WBC 4.9 (4.5-11.0) X10^3/uL RBC 4.13 (4.0-5.2) X10^6/uL Hgb 12.2 (12.0-16.0) g/dL Hct 36.7 (36-46) % MCV 89.0 (80-100) fL MCH 29.5 (26-34) PG MCHC 33.2 (30-36) % RDW 12.9 (11.6-14.8) % Plt Count 384 (150-400) X10^3/uL Neut % (Auto) 60.6 (50-75) % Lymph % (Auto) 32.2 (25-40) % [place] % (Auto) 6.0 (3-14) % Eos % (Auto) 0.5 L (2-4) % Baso % (Auto) 0.7 (0-2) % Neut # (Auto) 2900 (1986-2093) /uL Lymph # (Auto) 1600 (5301-5840) /uL [place] # (Auto) 300 (0-900) /uL Eos # (Auto) 0 (0-450) /uL Baso # (Auto) 0 (0-100) /uL Sodium 134 L (137-145) mmol/L Potassium 4.1 (3.4-5.1) mmol/L Chloride 97 L (98-107) mmol/L Carbon Dioxide 25 (22-32) mmol/L BUN 10 (7-17) mg/dL Creatinine 0.53 (0.52-1.04) mg/dL Estimated GFR > 60 (>60) mL/min BUN/Creatinine Ratio 18.9 (6-22) Glucose 99 (70-100) mg/dL Calcium 9.2 (8.4-10.2) mg/dL Total Bilirubin 0.5 (0.2-1.3) mg/dL AST 51 H (14-36) IU/L ALT 37 H (<35) IU/L Alkaline Phosphatase 83 (38-126) U/L Total Protein 8.3 H (6.3-8.2) g/dL Albumin 4.6 (3.5-5.0) g/dL Globulin 3.7 (1.7-4.1) g/dL Albumin/Globulin Ratio 1.2 (1.0-2.8) Lipase 61 (23-300) U/L Point of care testing: Point of Care Testing Test Results Negative Urine Dip Bedside Urine Glucose Negative Bedside Urine Bilirubin - Negative Bedside Urine Ketone - Negative Urine Specific [place] 1.010 Bedside Urine Occult Blood +/- Bedside Urine pH 6.5 Bedside Urine Protein - Negative Bedside Urine Urobilinogen - Negative Bedside Urine Nitrite - Negative Bedside Urine Leukocytes - Negative Esterase MDM Narrative Medical decision making narrative: 37-year-old female presenting with abdominal pain and bloating in the setting of multiple recent evaluations for similar. On presentation, vital signs notable for no significant abnormalities. Physical exam notable for a well-appearing 37-year-old female in no acute distress, reassuring cardiopulmonary exam, benign abdomen. Initial concern for acute intra-abdominal pathology including focal bacterial infection, viral syndrome, biliary pathology, pancreatitis, female specific pelvic pathology, appendicitis, medication effect, electrolyte abnormality. IV access established and screening labs were obtained. Patient's prior medical records were reviewed from previous weeks including imaging of the abdomen and pelvis. Patient's prior imaging without clear evidence of acute pathology. Given patient's benign abdominal exam today, repeat imaging was deferred pending laboratory analysis. No vaginal bleeding or discharge to suggest STI or female specific pelvic pathology. Patient's prior imaging reviewed, no obvious surgical pathology identified. Screening labs notable for no evidence of leukocytosis or left shift, no anemia, overall reassuring CMP without electrolyte derangements. On repeat evaluation, patient with mild improvement in symptoms. Discussed overall reassuring evaluation in the emergency department and plan for close outpatient follow up with patient scheduler and primary care provider. Discharge Plan Departure Patient Disposition: Home Clinical Impression: Abdominal bloating, Pelvic pain Instructions: DI for Pelvic Inflammatory Disease (PID), DI for Abdominal Pain-Adult Activity Restrictions/Additional Instructions: *You have been diagnosed with [ ] *What to do: *Please continue to take your regular medications as directed. *Please follow up with CARDIOVASCULAR SONOGRAPHER for evaluation of uterine fibroids/endometriosis. *Please follow up with your primary care provider in 2-3 days, call for an appointment. Let them know you were seen in the Emergency Department and that we ask that you be seen in follow up. We will electronically transmit a record of today's note if your PCP is in our system *If you do not have a primary care provider please contact the [facility] Resource line at [phone]. They will ask some questions about your medical history and help get you set up with a doctor in the community. *Return to Emergency Department if you should have any new, worsening or concerning symptoms, such as [fever greater than 101 F, shaking chills, worsening pain, persistent vomiting or other bothersome symptoms] Prescriptions: No Action valacyclovir 500 mg tablet 500 mg PO BID PRN (Reason: flare) Rx Instructions: 500 mg BID x3 days during flare pantoprazole 40 mg tablet,delayed release (DR/EC) 40 mg PO DAILY sucralfate 1 gram tablet 1 g PO QID aluminum-magnesium hydroxide 500-500 mg/5 mL suspension PO .PO PRN ferrous gluconate 324 mg (38 mg iron) tablet 324 mg PO .qod Qty: 45 0RF Rx Instructions: take one tablet with vitamin c every other day, use stool softener as needed. sertraline 150 mg capsule 150 mg PO DAILY Qty: 90 2RF fexofenadine 30 mg Tablet 30 mg PO DAILY multivitamin Tablet,Chewable 2 tab PO DAILY ondansetron HCl [Zofran] 4 mg tablet 4 mg PO Q8H PRN (Reason: nausea and vomiting) Qty: 7 1RF methocarbamol 500 mg tablet 500 mg PO TID Qty: 20 0RF blyoyaqgjefhuru-IK-uyhgvrogneq 60-30-400 mg tablet 1 tab PO BID PRN (Reason: sinus symptoms) Qty: 20 0RF Referrals: Chasity Clement ARNP [Primary Care Provider] - Stand Alone Forms: Patient Portal/API, Work Release Note
[2022-07-25 12:37] LABS: Add Manual Diff / Slide Review NO; Basophils Absolute Auto 0 /uL (0-100); Basophils Percent Auto 0.7 % (0-2); Eosinophils Absolute Auto 0 /uL (0-450); Eosinophils Percent Auto 0.5 % (2-4); Hematocrit 36.7 % (36-46); Hemoglobin 12.2 g/dL (12.0-16.0); Lymphocytes Absolute Auto 1600 /uL (1100-4500); Lymphocytes Percent Auto 32.2 % (25-40); Mean Corpuscular HGB Conc 33.2 % (30-36); Mean Corpuscular Hemoglobin 29.5 PG (26-34); Monocytes Absolute Auto 300 /uL (0-900); Neutrophils Absolute Auto 2900 /uL (1500-7000); Neutrophils Percent Auto 60.6 % (50-75); Platelet Count 384 X10^3/uL (150-400); Red Blood Cell Count 4.13 X10^6/uL (4.0-5.2); Red Cell Distribution Width 12.9 % (11.6-14.8); White Blood Cell Count 4.9 X10^3/uL (4.5-11.0)
[2022-07-25 12:54] LABS: Alanine Aminotransferase 37 IU/L (<35); Albumin 4.6 g/dL (3.5-5.0); Albumin Globulin Ratio 1.2 (1.0-2.8); Alkaline Phosphatase 83 U/L (38-126); Aspartate Aminotransferase 51 IU/L (14-36); BUN Creatinine Ratio 18.9 (6-22); Bilirubin Total 0.5 mg/dL (0.2-1.3); Blood Urea Nitrogen 10 mg/dL (7-17); Calcium 9.2 mg/dL (8.4-10.2); Carbon Dioxide 25 mmol/L (22-32); Chloride 97 mmol/L (98-107); Estimated Glomerular Filt Rate > 60 mL/min (>60); Globulin 3.7 g/dL (1.7-4.1); Glucose 99 mg/dL (70-100); HEMOLYSIS < 15 (0-50); Lipase 61 U/L (23-300); Potassium 4.1 mmol/L (3.4-5.1); Sodium 134 mmol/L (137-145); Total Protein 8.3 g/dL (6.3-8.2)
[2022-07-25] MEDS: SODIUM CHLORIDE 0.9% 1,000 ML 1000 ML IV (14:05)
[2022-07-25] MEDS: KETOROLAC 30 MG/ML VIAL 15 MG IV (14:06)
[2022-07-25] MEDS: ONDANSETRON 4 MG/2 ML INJ IV (14:12)
[2022-07-25 14:20] VITALS: BP 111/73; PULSE 69; RESP 16; O2SAT 100
[2022-07-25 15:00] VITALS: BP 115/69; PULSE 74; RESP 15; O2SAT 100
[2022-07-25 16:00] VITALS: BP 113/67; PULSE 72; RESP 15; O2SAT 100
[2022-07-25 17:00] VITALS: BP 111/67; PULSE 69; RESP 16; O2SAT 100
== END 2022-07-25 17:24 | disposition home or self-care (01) ==
PROVIDERS: Emergency Medicine; Emergency Provider Emergency Medicine; Family Provider Family Medicine; PCP Nurse Practitioner Family
DX: R10.2 Pelvic and perineal pain (principal); R10.31 Right lower quadrant pain
CPT/HCPCS: 36415; 80053; 81003; 81025; 83690; 85025; 96361; 96374; 96375; 99284; J1885; J2405; J2765

== ENCOUNTER 2022-09-24 15:59 | Emergency (ER) | payer OTHER, SELFPAY ==
[2022-09-24] VITALS (13 sets, daily range): BP systolic 120–137; BP diastolic 57–86; PULSE 75–94; RESP 20; TEMP 37.4; O2SAT 99–100; BMI 27.4
--- NOTE | 2022-09-24 17:22 | PC.NURSE ---
Hx abd pain since . States she is waiting to schedule hysterectomy surgery @ [facility]. States she may have endometriosis. States her surgeon recommended exploratory surgery during/after hysterectomy surgery to see if appendix is involved LRQ pain 03/01.
[2022-09-24] MEDS: KETOROLAC 30 MG/ML VIAL 15 MG IV (17:54)
[2022-09-24 17:57] LABS: Add Manual Diff / Slide Review NO; Basophils Absolute Auto 0 /uL (0-100); Basophils Percent Auto 0.5 % (0-2); Eosinophils Absolute Auto 0 /uL (0-450); Eosinophils Percent Auto 0.5 % (2-4); Hematocrit 34.6 % (36-46); Hemoglobin 11.5 g/dL (12.0-16.0); Lymphocytes Absolute Auto 2700 /uL (1100-4500); Lymphocytes Percent Auto 37.2 % (25-40); Mean Corpuscular HGB Conc 33.2 % (30-36); Mean Corpuscular Hemoglobin 29.1 PG (26-34); Mean Corpuscular Volume 87.4 fL (80-100); Monocytes Absolute Auto 400 /uL (0-900); Monocytes Percent Auto 5.5 % (3-14); Neutrophils Absolute Auto 4100 /uL (1500-7000); Neutrophils Percent Auto 56.3 % (50-75); Platelet Count 384 X10^3/uL (150-400); Red Blood Cell Count 3.96 X10^6/uL (4.0-5.2); Red Cell Distribution Width 13.6 % (11.6-14.8); White Blood Cell Count 7.3 X10^3/uL (4.5-11.0)
[2022-09-24 18:09] LABS: Alanine Aminotransferase 24 IU/L (<35); Albumin 4.6 g/dL (3.5-5.0); Albumin Globulin Ratio 1.5 (1.0-2.8); Alkaline Phosphatase 82 U/L (38-126); Aspartate Aminotransferase 26 IU/L (14-36); BUN Creatinine Ratio 9.8 (6-22); Bilirubin Total 0.3 mg/dL (0.2-1.3); Blood Urea Nitrogen 5 mg/dL (7-17); Carbon Dioxide 27 mmol/L (22-32); Chloride 98 mmol/L (98-107); Estimated Glomerular Filt Rate > 60 mL/min (>60); Globulin 3.1 g/dL (1.7-4.1); Glucose 86 mg/dL (70-100); HEMOLYSIS < 15 (0-50); Lipase 92 U/L (23-300); Potassium 3.9 mmol/L (3.4-5.1); Sodium 136 mmol/L (137-145); Total Protein 7.7 g/dL (6.3-8.2)
--- NOTE | 2022-09-24 18:10 | PC.NURSE ---
Pt reporting recent abx use for treatment of a UTI about 2-3 weeks ago. Pt also reporting constipation. Encouraged to use call light. Call light within reach.
--- NOTE | 2022-09-24 18:35 | ED_ITS ---
HPI - General Adult General Chief complaint: Abdominal Pain Stated complaint: abd pain/lower right side x30 days Time Seen by Provider: 09/24/22 18:02 Source: patient Mode of arrival: Ambulatory Limitations: no limitations History of Present Illness HPI narrative: Patient here for evaluation of right lower quadrant/pelvic pain. It has been going on for the past several weeks. She is been evaluated multiple times in the emergency department. Has had multiple CT scans and ultrasounds. Has also seen observer electrical prospecting and General surgery and also GI. Is scheduled to have a diagnostic laparoscopy done however this is not for several weeks. She does have pain medication at home. She is here because she is having continued pain which she states has worsened over the past couple hours/days. She states that it was a fairly sudden onset. Is in her right lower quadrant and right adnexa. No fevers. She does have history of constipation. She denies any urinary symptoms. Some nausea no vomiting. Related Data Home Medications Medication Instructions Recorded Confirmed valacyclovir 500 mg tablet 500 mg PO BID PRN flare 10/28/20 05/14/22 fexofenadine 30 mg tablet 30 mg PO DAILY 12/17/20 05/14/22 multivitamin 2 tab PO DAILY 12/17/20 05/14/22 aluminum-magnesium hydroxide 500 ml PO .PO PRN 03/15/21 05/14/22 mg-500 mg/5 mL oral suspension pantoprazole 40 mg tablet,delayed 40 mg PO DAILY 03/15/21 05/14/22 release sucralfate 1 gram tablet 1 g PO QID 03/15/21 05/14/22 Previous Rx's Medication Instructions Recorded ondansetron HCl 4 mg tablet 4 mg PO Q8H PRN nausea and 12/17/20 (Zofran) vomiting #7 tabs ferrous gluconate 324 mg (38 mg 324 mg PO .qod #45 tabs 06/08/21 iron) tablet methocarbamol 500 mg tablet 500 mg PO TID #20 tabs 08/31/21 pseudoephedrine 60 mg-DM 30 1 tab PO BID PRN sinus symptoms 08/31/21 mg-guaifenesin 400 mg tablet #20 tabs sertraline 150 mg capsule 150 mg PO DAILY #90 caps 10/26/21 Allergies Allergy/AdvReac Type Severity Reaction Status Date / Time nitrofurantoin Allergy Severe Swelling Verified 09/24/22 16:15 [From MACROBID] of Lip/Tongue/Throat Sulfa (Sulfonamide Allergy Severe SWEllING Verified 09/24/22 16:15 Antibiotics) [SULFA (SULFONAMIDE ANTIBIOTICS)] azithromycin [AZITHROMYCIN] Allergy Intermediate Verified 09/24/22 16:15 ciprofloxacin [From CIPRO] Allergy Mild Rash Verified 09/24/22 16:15 Penicillins [PENICILLINS] Allergy Unknown Verified 09/24/22 16:15 tapentadol [TAPENTADOL] Allergy Unknown Verified 07/25/22 11:27 codeine [CODEINE] AdvReac Intermediate Nightmare Verified 09/24/22 16:15 zolpidem [From AMBIEN] AdvReac Intermediate Hallucinati Verified 09/24/22 16:15 ng Review of Systems Constitutional Constitutional: Reports system reviewed and no additional complaints, except as documented Cardiovascular Cardiovascular: Reports system reviewed and no additional complaints, except as documented Respiratory Respiratory: Reports system reviewed and no additional complaints, except as documented Gastrointestinal Gastrointestinal: Reports system reviewed and no additional complaints, except as documented Genitourinary Genitourinary: Reports system reviewed and no additional complaints, except as documented Integumentary/Breasts Skin/Breast: Reports system reviewed and no additional complaints, except as doc umented Hematologic/Lymphatic On Anticoagulants: No 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) Anxiety (2011) Depression (2011) Encounter for wellness examination in adult (10/28/20) Encounter to establish care Fibromyalgia Frequent UTI GERD (gastroesophageal reflux disease) (2007) Ovarian cyst PTSD (post-traumatic stress disorder) (~2006) SI (sacroiliac) joint dysfunction TMJ (dislocation of temporomandibular joint) Surgical History Anesthesia History of bladder surgery History of cholecystectomy (~2012) History of surgery Family History Father Diabetes mellitus Hypertension Hyperlipidemia Mother Hypertension Grandmother Stroke Grandfather History of heart disease Grandmother History of heart disease Social History household members: spouse Smoking Status: Never smoker second hand exposure: No alcohol intake: never substance use type: does not use Smoking Status: Never smoker alcohol intake frequency: holidays/special occasions only Substance Use Type: does not use Exam Initial Vital Signs Initial Vital Signs: Vital Signs Temperature 99.3 F 09/24/22 16:10 Pulse Rate 76 09/24/22 16:10 Respiratory Rate 20 09/24/22 16:10 Blood Pressure 124/57 L 09/24/22 16:10 Pulse Oximetry 100 09/24/22 16:10 Oxygen Delivery Method Room Air 09/24/22 16:10 Const General: cooperative, comfortable and No ill appearing HENMT Head: normal to inspection Eyes General: Yes appearance normal, both eyes and all related structures Resp Effort & Inspection: normal respiratory effort Auscultation: clear to auscultation bilaterally Cardio Rate: regular rate GI Inspection: normal to inspection Palpation: soft, No firm and tender (Right adnexa) Back/Spine/Pelvis Back: No CVA tenderness Skin General: no rashes or lesions noted Neuro General: patient alert, patient awake and moves all extremities Extrem General: normal to inspection and capillary refill normal Course Orders Ordered: ED Orders 09/24/22 17:51 Complete Blood Count AUTO DIFF Stat Comprehensive Metabolic Panel Stat Lipase Stat 09/24/22 18:36 US pelvic complete Stat Discontinued Medications Hydrocodone Bitart/Acetaminophen (Hydrocodone/Acet 5/325 Tablet) 1 tab PO NOW ONE Stop: 09/24/22 20:05 Last Admin: 09/24/22 20:12 Dose: 1 tab Documented By: ALONSO Ketorolac Tromethamine (Ketorolac 30 Mg/Ml Vial) 15 mg IV NOW ONE Stop: 09/24/22 17:38 Last Admin: 09/24/22 17:40 Dose: Not Given Documented By: BECKY Ketorolac Tromethamine (Ketorolac 30 Mg/Ml Vial) 15 mg IV NOW ONE Stop: 09/24/22 17:40 Last Admin: 09/24/22 17:54 Dose: 15 mg Documented By: BECKY Ondansetron HCl (Ondansetron 4 Mg/2 Ml Inj) 4 mg IV NOW PRN PRN Reason: Nausea And Vomiting Vital Signs Vital signs: Vital Signs - 8 hr 09/24/22 18:00 09/24/22 18:00 09/24/22 18:20 Pulse Rate 78 Blood Pressure 131/86 132/73 Pulse Oximetry 100 09/24/22 18:20 09/24/22 18:30 09/24/22 18:40 Pulse Rate 83 94 H Blood Pressure 121/67 Pulse Oximetry 100 100 09/24/22 18:40 09/24/22 19:00 09/24/22 19:00 Pulse Rate 82 84 Blood Pressure 120/71 Pulse Oximetry 100 99 09/24/22 19:20 09/24/22 19:20 09/24/22 19:30 Pulse Rate 86 83 Blood Pressure 121/85 Pulse Oximetry 100 99 09/24/22 19:40 09/24/22 19:40 Pulse Rate 90 Blood Pressure 128/69 Pulse Oximetry 99 Medical Decision Making Medical Records Medical records reviewed: Yes I reviewed the patient's medical records. Lab Data Lab results reviewed: Yes I reviewed the patient's lab results. 09/24/22 17:51 09/24/22 17:51 Labs: Lab Results 09/24/22 09/24/22 Range/Units 17:51 17:51 WBC 7.3 (4.5-11.0) X10^3/uL RBC 3.96 L (4.0-5.2) X10^6/uL Hgb 11.5 L (12.0-16.0) g/dL Hct 34.6 L (36-46) % MCV 87.4 (80-100) fL MCH 29.1 (26-34) PG MCHC 33.2 (30-36) % RDW 13.6 (11.6-14.8) % Plt Count 384 (150-400) X10^3/uL Neut % (Auto) 56.3 (50-75) % Lymph % (Auto) 37.2 (25-40) % [place] % (Auto) 5.5 (3-14) % Eos % (Auto) 0.5 L (2-4) % Baso % (Auto) 0.5 (0-2) % Neut # (Auto) 4100 (7428-4401) /uL Lymph # (Auto) 2700 (0505-2334) /uL [place] # (Auto) 400 (0-900) /uL Eos # (Auto) 0 (0-450) /uL Baso # (Auto) 0 (0-100) /uL Sodium 136 L (137-145) mmol/L Potassium 3.9 (3.4-5.1) mmol/L Chloride 98 (98-107) mmol/L Carbon Dioxide 27 (22-32) mmol/L BUN 5 L (7-17) mg/dL Creatinine 0.51 L (0.52-1.04) mg/dL Estimated GFR > 60 (>60) mL/min BUN/Creatinine Ratio 9.8 (6-22) Glucose 86 (70-100) mg/dL Calcium 9.0 (8.4-10.2) mg/dL Total Bilirubin 0.3 (0.2-1.3) mg/dL AST 26 (14-36) IU/L ALT 24 (<35) IU/L Alkaline Phosphatase 82 (38-126) U/L Total Protein 7.7 (6.3-8.2) g/dL Albumin 4.6 (3.5-5.0) g/dL Globulin 3.1 (1.7-4.1) g/dL Albumin/Globulin Ratio 1.5 (1.0-2.8) Lipase 92 (23-300) U/L Point of Care Testing Test Results Negative Urine Dip Bedside Urine Glucose Negative Bedside Urine Bilirubin - Negative Bedside Urine Ketone - Negative Urine Specific [place] 1.010 Bedside Urine Occult Blood - Negative Bedside Urine pH 7.0 Bedside Urine Protein - Negative Bedside Urine Urobilinogen - Negative Bedside Urine Nitrite - Negative Bedside Urine Leukocytes - Negative Esterase Point of care testing: Point of Care Testing Test Results Negative Urine Dip Bedside Urine Glucose Negative Bedside Urine Bilirubin - Negative Bedside Urine Ketone - Negative Urine Specific [place] 1.010 Bedside Urine Occult Blood - Negative Bedside Urine pH 7.0 Bedside Urine Protein - Negative Bedside Urine Urobilinogen - Negative Bedside Urine Nitrite - Negative Bedside Urine Leukocytes - Negative Esterase Imaging Data US - LIME 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 US PELVIC COMPLETE ? INDICATIONS:? R pelvic pain eval for ovary pathology ? TECHNIQUE:? Real-time scanning was performed of the pelvic organs, with image documentation.? Additional endovaginal scanning was necessary due to incomplete visualization of the adnexal and endometrial structures by transabdominal scanning.? ? COMPARISON:? [facility], , US PELVIC COMPLETE, 01/27/2022, 15:34. ? FINDINGS:? ?? Uterus:? Uterus is anteverted and borderline enlarged at 10 0.5 x 5.1 x 6.0 cm. The myometrium is mildly heterogeneous with foci of posterior shadowing.? The endometrium measures six mm combined thickness.? ? Ovaries:? The right ovary measures 3.2 x 2.0 x 2.1 cm, with a calculated ovarian volume of 7.0 cc.? A 2.0 cm physiologic follicle is seen in the right ovary.? The left ovary measures 2.4 x 1.2 x 1.4 cm, with a calculated ovarian volume of 4.6 cc. The ovaries have a normal sonographic appearance. Less than 12 follicles can be seen in each ovary.? No adnexal masses are seen. ? Other:? Physiologic amount of fluid is seen in the pelvic cul-de-sac ? IMPRESSION:? 1. No sonographic signs of ovarian torsion. 2. Mildly enlarged and heterogeneous uterus, which is nonspecific but can be seen in setting of adenomyosis. ? We strive to produce accurate, complete, and clear reports of imaging services. To assist us in improving patient care, this report was composed using standard report templates and voice recognition software. Therefore, it may contain abnormal punctuation, insertions and/or omissions. Occasional wrong-word or sound-alike substitutions may occur. Though we review the report and make efforts to correct it, we do re MDM Narrative Medical decision making narrative: Patient's labs are unremarkable and her ultrasound shows no acute pathology. Given her fairly extensive workup that she is had both recently over the past couple weeks I feel that repeat CT scan is not warranted. She is scheduled to be further evaluated by both General surgery and observer electrical prospecting. This does not need to happened today is there is no emergent condition found on her workup today. Patient has pain medication at home. No indication for antibiotics. We did discuss the importance of maintaining a good bowel regimen given the pain medicine that she has at home and the potential that constipation could be causing these issues as well. She was given return precautions and follow-up instructions. She expressed understanding and agreement. Discharge Plan Departure Patient Disposition: Home Clinical Impression: Abdominal pain Instructions: DI for Abdominal Pain-Adult Activity Restrictions/Additional Instructions: I do recommend that you continue to take all of your medications as directed. Is also important that you take medications in order to maintain normal bowel movements. You can purchase things like stool softeners and laxatives [id number]. Keep all of your scheduled medical appointments. Contact your primary doctor for follow-up. Prescriptions: No Action valacyclovir 500 mg tablet 500 mg PO BID PRN (Reason: flare) Rx Instructions: 500 mg BID x3 days during flare pantoprazole 40 mg tablet,delayed release (DR/EC) 40 mg PO DAILY sucralfate 1 gram tablet 1 g PO QID aluminum-magnesium hydroxide 500-500 mg/5 mL suspension PO .PO PRN ferrous gluconate 324 mg (38 mg iron) tablet 324 mg PO .qod Qty: 45 0RF Rx Instructions: take one tablet with vitamin c every other day, use stool softener as needed. sertraline 150 mg capsule 150 mg PO DAILY Qty: 90 2RF fexofenadine 30 mg Tablet 30 mg PO DAILY multivitamin Tablet,Chewable 2 tab PO DAILY ondansetron HCl [Zofran] 4 mg tablet 4 mg PO Q8H PRN (Reason: nausea and vomiting) Qty: 7 1RF methocarbamol 500 mg tablet 500 mg PO TID Qty: 20 0RF [id number] 60-30-400 mg tablet 1 tab PO BID PRN (Reason: sinus symptoms) Qty: 20 0RF Referrals: Chasity Clement ARNP [Non-Staff] - Stand Alone Forms: Patient Portal/API
--- NOTE | 2022-09-24 18:36 | DI.US.S_ITS ---
PROCEDURE: US PELVIC COMPLETE INDICATIONS: R pelvic pain eval for ovary pathology TECHNIQUE: Real-time scanning was performed of the pelvic organs, with image documentation. Additional endovaginal scanning was necessary due to incomplete visualization of the adnexal and endometrial structures by transabdominal scanning. COMPARISON: [facility], US, US PELVIC COMPLETE, 01/27/2022, 15:34. FINDINGS: Uterus: Uterus is anteverted and borderline enlarged at 10 0.5 x 5.1 x 6.0 cm. The myometrium is mildly heterogeneous with foci of posterior shadowing. The endometrium measures six mm combined thickness. Ovaries: The right ovary measures 3.2 x 2.0 x 2.1 cm, with a calculated ovarian volume of 7.0 cc. A 2.0 cm physiologic follicle is seen in the right ovary. The left ovary measures 2.4 x 1.2 x 1.4 cm, with a calculated ovarian volume of 4.6 cc. The ovaries have a normal sonographic appearance. Less than 12 follicles can be seen in each ovary. No adnexal masses are seen. Other: Physiologic amount of fluid is seen in the pelvic cul-de-sac IMPRESSION: 1. No sonographic signs of ovarian torsion. 2. Mildly enlarged and heterogeneous uterus, which is nonspecific but can be seen in setting of adenomyosis. We strive to produce accurate, complete, and clear reports of imaging services. To assist us in improving patient care, this report was composed using standard report templates and voice recognition software. Therefore, it may contain abnormal punctuation, insertions and/or omissions. Occasional wrong-word or sound-alike substitutions may occur. Though we review the report and make efforts to correct it, we do recommend that the report be read carefully in proper context to recognize any text inaccuracies. Approved by: Zheng Schmidt M.D. on 09/24/2022 at 19:52
[2022-09-24] MEDS: HYDROCODONE/ACET 5/325 TABLET 1 TAB PO (20:12)
== END 2022-09-24 20:22 | disposition home or self-care (01) ==
PROVIDERS: Emergency Medicine; Emergency Provider Emergency Medicine; Family Provider Family Medicine; PCP Obstetrics & Gynecology
DX: R10.2 Pelvic and perineal pain (principal)
CPT/HCPCS: 36415; 76830; 76856; 80053; 81003; 81025; 83690; 85025; 96374; 99284; J1885

== ENCOUNTER → 2024-12-21 14:14 | Outpatient (CLI) | payer OTHER, SELFPAY ==
--- NOTE | 2024-12-21 14:16 | DI.RAD.S_ITS ---
PROCEDURE: XR FOOT RT MIN 3V INDICATIONS: Pain 3 through 5 distal metatarsal TECHNIQUE: 3 views of the foot were acquired. COMPARISON: None. FINDINGS: Bones: No fractures or dislocations. Postsurgical changes are seen in distal tibia and fibula No suspicious bony lesions. Soft tissues: No tibiotalar joint effusion. Achilles tendon appears normal. IMPRESSION: Postsurgical changes in distal lower leg. No acute right foot fracture or dislocation. No gross soft tissue abnormalities. Dictated by: Dominic Rao M.D. on 12/21/2024 at 15:07 Approved by: Dominic Rao M.D. on 12/21/2024 at 15:07
== END ==
PROVIDERS: Family Provider Family Medicine; PCP Family Medicine; Referring Provider Nurse Practitioner Family; Visit Provider Nurse Practitioner Family
DX: M79.671 Pain in right foot (principal)
CPT/HCPCS: 73630